=== PATIENT | female | born 1940 | race Caucasian/White ===

== ENCOUNTER 2021-11-06 19:06 | Observation (INO) ==
[2021-11-06] MEDS ORDERED: NS 1,000 ML IV 1,000 ML IV ONE (20:01)
[2021-11-06 20:21] LABS: BILIRUBIN,URINE NEGATIVE (NEGATIVE); BLOOD/HEMOGLOBIN,URINE 4+ (NEGATIVE); GLUCOSE, URINE NEGATIVE (NEGATIVE); KETONES,URINE NEGATIVE (NEGATIVE); LEUKOCYTE ESTERASE ,URINE 3+ (NEGATIVE); NITRITES,URINE NEGATIVE (NEGATIVE); PROTEIN,URINE 3+ (NEGATIVE); UROBILINOGEN,URINE NORMAL (NORMAL)
[2021-11-06 20:25] LABS: COLOR,URINE YELLOW (YELLOW)
[2021-11-06 20:26] LABS: APPEARANCE,URINE CLOUDY (CLEAR)
[2021-11-06 20:42] LABS: BACTERIA,URINE TRACE /HPF (NEGATIVE); RBC,URINE TNTC /HPF (0-3); SQUAMOUS EPITHELIAL CELL,UR MODERATE /HPF (NEGATIVE)
[2021-11-06 20:49] VITALS: BMI 23.0
[2021-11-06] MEDS ORDERED: MERREM VIAL ONE (21:43)
[2021-11-06] MEDS ORDERED: NS 50 ML IV 50 ML IV ONE (21:44)
[2021-11-06] MEDS: NS 1,000 ML IV 1,000 ML IV SCH (21:49)
[2021-11-06] MEDS ORDERED: MERREM VIAL IVP SCH (22:00)
[2021-11-06] MEDS ORDERED: MERREM PREMIX IV 500 MG 500 MG/50 ML BAG IV SCH (22:00)
[2021-11-06] MEDS: MERREM VIAL 500 MG in NS 50 ML IV 50 ML IV SCH (22:31)
[2021-11-07 04:33] LABS: BASOPHILS % (AUTO) 0.7 % (0.2-1.0); EOSINOPHILS # (AUTO) 0.3 x10^3/uL (0.0-0.2); HEMATOCRIT 25.5 % (36.0-47.0); HEMOGLOBIN 8.9 g/dL (12.0-16.0); LYMPHOCYTES % (AUTO) 14.9 % (21.0-51.0); MEAN CORPUSCULAR HEMOGLOBIN 27.2 pg (27.0-34.0); MEAN CORPUSCULAR HGB CONC 34.8 g/dL (33.0-35.0); MEAN CORPUSCULAR VOLUME 78.2 fL (80.0-100.0); MEAN PLATELET VOLUME 8.3 fL (7.4-11.0); MONOCYTES # (AUTO) 0.5 x10^3/uL (0.3-0.8); MONOCYTES % (AUTO) 7.8 % (0.0-13.0); NEUTROPHILS # (AUTO) 4.8 x10^3/uL (2.2-4.8); NEUTROPHILS % (AUTO) 72.6 % (42.0-75.0); RED BLOOD COUNT 3.26 X10^6/uL (3.5-5.4); RED CELL DISTRIBUTION WIDTH 14.6 % (11.6-16.5); WHITE BLOOD COUNT 6.6 X10^3/uL (3.6-10.0)
[2021-11-07 05:07] LABS: ALANINE AMINOTRANSFERASE 25 Units/L (12-78); ALBUMIN 2.8 g/dL (3.4-5.0); ALKALINE PHOSPHATASE 77 Units/L (46-116); ASPARTATE AMINO TRANSFERASE 24 Units/L (15-37); BLOOD UREA NITROGEN 47 mg/dL (7-18); CALCIUM 7.9 mg/dL (8.5-10.1); CARBON DIOXIDE 18.8 mmol/L (21-32); CHLORIDE 104 mmol/L (98-107); COR CA(FOR HYPOALB) 8.9 mg/dL (8.5-10.1); CREATININE 2.35 mg/dL (0.55-1.02); SODIUM 133 mmol/L (136-145); TOTAL PROTEIN 7.1 g/dL (6.4-8.2); eGFR NON BLACK RACES 21 (>60)
[2021-11-07] MEDS: NS 1,000 ML IV 1,000 ML IV SCH ×3 (05:40→21:31)
[2021-11-07] MEDS ORDERED: TYLENOL 325 MG TAB PO PRN (08:26)
[2021-11-07] MEDS ORDERED: [UNRECOGNIZED DRUG - OTHER] TOP SCH (09:00)
[2021-11-07] MEDS ORDERED: [UNRECOGNIZED DRUG - OTHER] OP SCH (09:00)
[2021-11-07] MEDS ORDERED: SYNTHROID 50 mcg TAB PO SCH (09:00)
[2021-11-07] MEDS: MERREM VIAL 500 MG in NS 50 ML IV 50 ML IV SCH ×2 (09:52→21:48)
[2021-11-07] MEDS: APRESOLINE TAB 25 MG PO SCH ×3 (11:01→21:34)
[2021-11-07] MEDS: CATAPRES TAB 0.2 MG PO SCH ×2 (11:02→21:33)
[2021-11-07] MEDS: ISOSORBIDE MONONITRATE ER 24-HR PO SCH (11:02)
[2021-11-07] MEDS: COLACE CAP 100 MG PO SCH (11:02)
[2021-11-07] MEDS: NORVASC TAB 10 MG PO SCH (11:03)
[2021-11-07] MEDS: KEPPRA TAB 500 MG PO SCH ×2 (11:03→21:34)
[2021-11-07] MEDS: PLAVIX PO SCH (11:03)
[2021-11-07] MEDS: PREDNISONE TAB 5 MG PO SCH (11:04)
[2021-11-07] MEDS: SINEMET (PLAIN) 25/100 MG PO SCH ×2 (11:05→21:35)
[2021-11-07] MEDS: PROTONIX TAB 40 MG PO SCH ×2 (11:05→21:35)
--- NOTE | 2021-11-07 12:25 | CT ---
HISTORYsevere mcmullen hypertension.STUDYBRAIN W/O CONCOMPARISONHead CT 08/09/2019TECHNIQUEMultiple CT axial images of the head were obtained without IV contrast. Coronal and sagittal images were reconstructed. Dose reduction techniques included Automated Exposure Control (AEC) and adjustment of mA and kV.FINDINGSAge-related findings include central and cortical atrophy with areas of low density in the periventricular white matter compatible with micro-ischemic changes. Coffey and white matter have normal differentiation. There is no mass, shift, or hemorrhage. Cerebellar tonsils are at an appropriate level.The chronic sinusitis which was present in left sphenoid sinus has resolved. No fluid in the sinuses or mucosal thickening to suggest sinusitis. There is no mastoid effusion.IMPRESSION1. No acute findingElectronically signed by: Rylan Gunderson (Nov 07, 2021 12:23:28)
[2021-11-07] MEDS: FLUOCINONIDE 0.05% TOP SCH ×3 (13:33→21:35)
--- NOTE | 2021-11-07 17:46 | DR.H&P ---
H&P - History & Physical for Day of: H&P Date: 11/06/21 - Chief Complaint Chief Complaint: DYSURIA, URINARY URGENCY, FEVER, HEADACHE - History of Present Illness History of Present Illness: IS A 80 YEAR OLD PATIENT OF OURS. SHE IS A RESIDENT OF [facility]. SHE WAS A DIRECT ADMISSION TO THE HOSPITAL OBSERVATION STATUS DUE TO PERSISTENT FEVER, DYSURIA, AND URINARY URGENCY. SHE HAS BEEN TAKING AUGMENTIN 875/125MG PO BID FOR ABOUT A WEEK FOR TREATMENT OF E.COLI UTI. SYMPTOMS HAVE PERSISTED DESPITE COMPLIANCE WITH MEDICATIONS. SHE ALSO COMPLAINTS OF A SEVERE RIGHT SIDED HEADACHE AND PRESSURE BEHIND THE RIGHT EYE. HEADACHE IS DESCRIBED DULL AND THROBBING. IT IS INTERMITTENT. CURRENT PAIN LEVEL 5/10. HER PMH INCLUDES: COPD, CAD, HYTN, HYPERLIPIDEMIA, GIANT CELL ARTERTITIS, CHRONIC RENAL DISEASE STAGE 3, GERD, GOUT, APPENDECTOMY, CHOLECYSTECTOMY, HYSTERECTOMY. ON ARRIVAL TO THE HOSPTIAL, HER VITALS WERE 97.8-81-20-99%-144/67. LABS WERE OBTAINED. WBC 6.6, RBC 3.26, HGB 8.9, HCT 25.5, SODIUM 133, POTASSIUM 4.5, CHLORIDE 104, CARBON DIOXIDE 18.8, BUN 47, CREATININE 2.35, GLUCOSE 100, CALCIUM 7.9, TOTAL BILI 0.20, AST 24, ALT 25, ALK PHOS 77, TOTAL PROTEIN 7.1, ALBUMIN 2.8. A URINALYSIS WAS OBTAINED. IT REVEALED: WBC 10- 20, RBC TNTC, LEUKOCYTES 3+, BACTERIA TRACE, BLOOD 4+, PROTEIN 3+. COVID-19, INFLUENZA, RSV NEGATIVE. A URINE CULTURE WAS SET UP. SHE WAS STARTED ON NORMAL SALINE AT 100 ML/HR, MEROPENEM 500MG IV Q12H, AND HER HOME MEDICATIONS WERE RESUMED. OTHERWISE, WE PLAN TO FOLLOW-UP WITH AM LABS AND CONTINUE TO MONITOR. TIME SPENT ON CLINICAL ASSESSMENT, REVIEWING LABS AND IMAGING, DECISION MAKING, AND DOCUMENTATION GREATER THAN 75 MINUTES. - Past Medical History Past Medical History: COPD, Coronary Artery Disease, Dyslipidemia, GERD, Gout, Renal Disease Additional Medical History: GIANT CELL ARTERITIS - Past Surgical History Surgical History: Appendectomy, Cholecystectomy, Hysterectomy - Family History Family Medical History: Coronary Artery Disease, Hypertension - Social History Alcohol Use: None Drug Use: None - Medications Home Medications: lisinopril Allergy (Verified 11/06/21 20:32) CONTINUE taking the following medications acetaminophen [Tylenol] 650 mg PO Q6H PRN 11/06/21 [History] amlodipine [Norvasc] 10 mg PO DAILY 11/06/21 [History] amoxicillin-pot clavulanate [Augmentin] 1 tab PO BID 11/06/21 [History] atorvastatin 20 mg PO QHS 11/06/21 [History] carbidopa-levodopa 1 tab PO BID 11/06/21 [History] carboxymethylcellulose sodium [Refresh Plus] 1 drp OPHTHALMIC (EYE) BID 11/06/21 [History] chlorthalidone 50 mg PO DAILY 11/06/21 [History] clonidine HCl 0.2 mg PO BID 11/06/21 [History] clopidogrel [Plavix] 75 mg PO DAILY 11/06/21 [History] colchicine 0.6 mg PO PRN PRN 11/06/21 [History] docusate sodium [Colace] 100 mg PO DAILY 11/06/21 [History] fluocinonide 1 applic TOPICAL BID-QID PRN 11/06/21 [History] hydralazine 50 mg PO TID 11/06/21 [History] isosorbide mononitrate 120 mg PO QAM 11/06/21 [History] levetiracetam [Keppra] 500 mg PO BID 11/06/21 [History] levothyroxine [Synthroid] 50 mcg PO DAILY 11/06/21 [History] loratadine [Claritin] 10 mg PO QHS 11/06/21 [History] nystatin-triamcinolone 1 applic TOPICAL BID 11/06/21 [History] pantoprazole [Protonix] 40 mg PO BID 11/06/21 [History] polyethylene glycol 3350 [Miralax] 17 g PO PRN PRN 11/06/21 [History] prednisone 5 mg PO DAILY 11/06/21 [History] triamcinolone acetonide 1 applic TOPICAL PRN PRN 11/06/21 [History] - Review of Systems Constitutional: Fever, Chills Eyes: No Symptoms Reported ENT: No Symptoms Reported Respiratory: No Symptoms Reported Cardiovascular: No Symptoms Reported Gastrointestinal: Nausea Genitourinary: See HPI, Dysuria, Frequency Musculoskeletal: No Symptoms Reported Skin: No Symptoms Reported Neurological: Weakness, Other (HEADACHE ) - Physical Exam Vital Signs: Temperature 99.3 F Pulse Rate [Right] 76 Respiratory Rate 18 Blood Pressure [Right Arm] 147/65 O2 Sat by Pulse Oximetry 97 Oriented: Normal Eyes: Normal Ear: Normal Nose: Normal Throat: Normal Respiratory: Clear Throughout Cardiovascular: Normal : Dysuria, Hematuria, Frequency Auscultation: Bowel Sounds: Normal Palpation: Normal Tenderness: Normal Skin: Normal Musculoskeletal: Normal Psychiatric: Normal Mood Description: Calm Affect: Normal Speech Pattern: Clear - Assessment/Plan (1) E. coli UTI Status: Acute Plan: ADMIT, NORMAL SALINE AT 100 ML/HR, MEROPENEM 500MG IV Q12H, AND HER HOME MEDICATIONS WERE RESUMED. (2) Failure of outpatient treatment Status: Acute (3) Headache Qualifiers: Headache type: unspecified Headache chronicity pattern: acute headache Intractability: not intractable Qualified Code(s): R51.9 - Headache, unspecified Status: Acute (4) COPD (chronic obstructive pulmonary disease) Qualifiers: COPD type: unspecified COPD Qualified Code(s): J44.9 - Chronic obstructive pulmonary disease, unspecified Status: Chronic Plan: CONTINUE HOME MEDS (5) HTN (hypertension) Qualifiers: Hypertension type: primary hypertension Qualified Code(s): I10 - Essential (primary) hypertension Status: Chronic Plan: CONTINUE HOME MEDS (6) Hyperlipidemia Qualifiers: Hyperlipidemia type: mixed hyperlipidemia Qualified Code(s): E78.2 - Mixed hyperlipidemia Status: Chronic Plan: CONTINUE HOME MEDS (7) Chronic renal disease Qualifiers: Chronic kidney disease stage: stage 3 (moderate) Chronic kidney disease stage 3 subtype: unspecified whether 3a or 3b Qualified Code(s): N18.30 - Chronic kidney disease, stage 3 unspecified Status: Chronic Plan: CONTINUE HOME MEDS (8) CAD (coronary artery disease) Qualifiers: Coronary Disease-Associated Artery/Lesion type: [place] artery [place] vs. transplanted heart: [place] heart Associated angina: unspecified whether angina present Qualified Code(s): I25.10 - Atherosclerotic heart disease of [place] coronary artery without angina pectoris Status: Chronic Plan: CONTINUE HOME MEDS - Allergies Allergies/Adverse Reactions: Allergies Allergy/AdvReac Type Severity Reaction Status Date / Time lisinopril Allergy Verified 11/06/21 20:32
[2021-11-07] MEDS: ARTIFICIAL TEARS DROPS OP SCH (21:32)
[2021-11-07] MEDS: LIPITOR TAB 20 MG PO SCH (21:34)
[2021-11-07] MEDS: CLARITIN PO SCH (21:34)
[2021-11-08] MEDS: NS 1,000 ML IV 1,000 ML IV SCH ×4 (04:07→20:38)
[2021-11-08 04:31] LABS: BASOPHILS # (AUTO) 0.1 X10^3/uL (0.0-0.1); BASOPHILS % (AUTO) 0.7 % (0.2-1.0); EOSINOPHILS # (AUTO) 0.2 x10^3/uL (0.0-0.2); HEMOGLOBIN 8.4 g/dL (12.0-16.0); LYMPHOCYTES # (AUTO) 1.5 X10^3/uL (1.3-2.9); LYMPHOCYTES % (AUTO) 20.3 % (21.0-51.0); MEAN CORPUSCULAR HEMOGLOBIN 27.5 pg (27.0-34.0); MEAN CORPUSCULAR HGB CONC 34.9 g/dL (33.0-35.0); MEAN CORPUSCULAR VOLUME 78.9 fL (80.0-100.0); MEAN PLATELET VOLUME 7.9 fL (7.4-11.0); MONOCYTES # (AUTO) 0.7 x10^3/uL (0.3-0.8); MONOCYTES % (AUTO) 10.2 % (0.0-13.0); NEUTROPHILS # (AUTO) 4.8 x10^3/uL (2.2-4.8); NEUTROPHILS % (AUTO) 65.8 % (42.0-75.0); RED BLOOD COUNT 3.04 X10^6/uL (3.5-5.4); RED CELL DISTRIBUTION WIDTH 14.8 % (11.6-16.5); WHITE BLOOD COUNT 7.3 X10^3/uL (3.6-10.0)
[2021-11-08 04:42] LABS: ALANINE AMINOTRANSFERASE 11 Units/L (12-78); ALBUMIN 2.6 g/dL (3.4-5.0); ALKALINE PHOSPHATASE 70 Units/L (46-116); ASPARTATE AMINO TRANSFERASE 22 Units/L (15-37); BLOOD UREA NITROGEN 35 mg/dL (7-18); CALCIUM 7.9 mg/dL (8.5-10.1); CARBON DIOXIDE 18.2 mmol/L (21-32); CHLORIDE 110 mmol/L (98-107); CREATININE 1.69 mg/dL (0.55-1.02); SODIUM 137 mmol/L (136-145); TOTAL PROTEIN 6.6 g/dL (6.4-8.2); eGFR NON BLACK RACES 31 (>60)
[2021-11-08] MEDS: SYNTHROID 50 mcg TAB PO SCH (05:24)
[2021-11-08] MEDS: APRESOLINE TAB 25 MG PO SCH ×3 (05:24→21:37)
--- NOTE | 2021-11-08 09:54 | PCM.PROG ---
Progress Note - Progress Note for Day of Date of Exam: 11/08/21 - Subjective Subjective: IS CURRENTLY OBSERVATION STATUS FOR TREATMENT OF A URINARY TRACT INFECTION, FAILED OUTPATIENT TREATMENT, ACUTE ON CHRONIC RENAL DISEASE, GENERALIZED WEAKNESS, AND HEADACHE. SHE HAS A PMH OF COPD, HTN, HYPERLIPIDEMIA, CHRONIC RENAL DISEASE, AND CAD. TODAY, SHE IS ALERT AND ORIENTED , LYING IN BED ON MORNING ROUNDS. SHE CONTINUES WITH COMPLAINTS OF GENERALIZED WEAKNESS THIS MORNING. SHE CONTINUES TO HAVE AN INTERMITTENT HEADACHE, BUT DOES REPORT IMPROVEMENT SINCE YESTERDAY. ON EXAMINATION, HEART IS REGULAR IN RATE AND RHYTHM. BILATERAL LUNGS ARE CLEAR TO AUSCULATATION. ABDOMEN IS ROUND, SOFT, AND NOTED WITH SUPRAPUBIC TENDERNESS. NORMAL BOWEL SOUNDS ARE NOTED IN ALL QUADRANTS . NO UPPER OR LOWER EXTREMITY EDEMA NOTED. HER VITALS THIS MORNING ARE: 98.7-72-22-99%-147/65. LABS WERE OBTAINED. WBC 7.3, RBC 3.04, HGB 8.4, HCT 24.0, PLT COUNT 164, SODIUM 137, POTASSIUM 4.9, CHLORIDE 110, CARBON DIOXIDE 18.2, BUN 35, CREATININE 1.69, GLUCOSE 98, CALCIUM 7.9, AST 22, ALT 11, ALK PHOS 70, TOTAL PROTEIN 6.6, ALBUMIN 2.6. URINE CULTURE IS PENDING. A BRAIN CT WAS OBTAINED YESTERDAY DUE TO COMPLAINTS OF PERSISTENT HEADACHE. IT REVEALED: Age-related findings include central and cortical atrophy with areas of low density in the periventricular white matter compatible with micro-ischemic changes. Coffey and white matter have normal differentiation. There is no mass, shift, or hemor rhage. Cerebellar tonsils are at an appropriate level. The chronic sinusitis which was present in left sphenoid sinus has resolved. No fluid in the sinuses or mucosal thickening to suggest sinusitis. There is no mastoid effusion. SHE IS CURRENTLY RECEIVING NORMAL SALINE AT 100 ML/HR, MEROPENEM 500MG IV Q12H, AND HER HOME MEDICATIONS WERE RESUMED. WE WILL CONTINUE WITH CURRENT PLAN OF CARE TODAY. OTHERWISE, WE PLAN TO FOLLOW-UP WITH AM LABS AND CONTINUE TO MONITOR. TIME SPENT ON CLINICAL ASSESSMENT, REVIEWING LABS AND IMAGING, DECISION MAKING, AND DOCUMENTATION GREATER THAN 45 MINUTES. - Past Medical Family Social History Past Med/Fam/Surg Hx: No changes since H&P Allergies: Allergies lisinopril Allergy (Verified 11/06/21 20:32) - Review of Systems ROS: No change since H&P - Vital Signs and I&O's Vital Signs: Temperature 98.7 F Pulse Rate [Right] 72 Respiratory Rate 22 Blood Pressure [Right Arm] 147/65 O2 Sat by Pulse Oximetry 99 Intake and Output: Intake & Output 11/05/21 11/06/21 11/07/21 11/08/21 11:59 11:59 11:59 11:59 Intake Total 2457 / 2457 3133 / 3133 Output Total 880 / 880 1580 / 1580 Balance 1577 / 1577 1553 / 1553 - Physical Exam Oriented: Normal Eyes: Normal Ear: Normal Nose: Normal Throat: Normal Cardiovascular: Normal : Dysuria, Hematuria, Frequency Auscultation: Bowel Sounds: Normal Palpation: Normal Tenderness: Normal Skin: Normal Musculoskeletal: Normal Psychiatric: Normal Mood Description: Calm Affect: Normal Speech Pattern: Clear, Appropriate - Laboratory and Diagnostics Result Diagrams: 11/08/21 03:50 11/08/21 03:50 Labs: 11/06/21 19:55 Urine,Clean Catch Urine Culture - Final Laboratory WBC 7.3 X10^3/uL (3.6-10.0) 11/08/21 03:50 RBC 3.04 X10^6/uL (3.5-5.4) L 11/08/21 03:50 Hgb 8.4 g/dL (12.0-16.0) L 11/08/21 03:50 Hct 24.0 % (36.0-47.0) L 11/08/21 03:50 MCV 78.9 fL (80.0-100.0) L 11/08/21 03:50 MCH 27.5 pg (27.0-34.0) 11/08/21 03:50 MCHC 34.9 g/dL (33.0-35.0) 11/08/21 03:50 RDW 14.8 % (11.6-16.5) 11/08/21 03:50 Plt Count 164 X10^3/uL (150.0-450.0) 11/08/21 03:50 MPV 7.9 fL (7.4-11.0) 11/08/21 03:50 Neut % (Auto) 65.8 % (42.0-75.0) 11/08/21 03:50 Lymph % (Auto) 20.3 % (21.0-51.0) L 11/08/21 03:50 [place] % (Auto) 10.2 % (0.0-13.0) 11/08/21 03:50 Eos % (Auto) 3.0 % (0.9-2.9) H 11/08/21 03:50 Baso % (Auto) 0.7 % (0.2-1.0) 11/08/21 03:50 Neut # (Auto) 4.8 x10^3/uL (2.2-4.8) 11/08/21 03:50 Lymph # (Auto) 1.5 X10^3/uL (1.3-2.9) 11/08/21 03:50 [place] # (Auto) 0.7 x10^3/uL (0.3-0.8) 11/08/21 03:50 Eos # (Auto) 0.2 x10^3/uL (0.0-0.2) 11/08/21 03:50 Baso # (Auto) 0.1 X10^3/uL (0.0-0.1) 11/08/21 03:50 Absolute Nucleated RBC 0.0 /100WBC 11/08/21 03:50 Sodium 137 mmol/L (136-145) 11/08/21 03:50 Corrected Sodium TNP 11/08/21 03:50 Potassium 4.9 mmol/L (3.5-5.1) 11/08/21 03:50 Chloride 110 mmol/L (98-107) H 11/08/21 03:50 Carbon Dioxide 18.2 mmol/L (21-32) L 11/08/21 03:50 BUN 35 mg/dL (7-18) H 11/08/21 03:50 Creatinine 1.69 mg/dL (0.55-1.02) H 11/08/21 03:50 Est GFR (MDRD) Af Amer 37 (>60) L 11/08/21 03:50 Est GFR (MDRD) Non-Af 31 (>60) L 11/08/21 03:50 Glucose 98 mg/dL (65-99) 11/08/21 03:50 Calcium 7.9 mg/dL (8.5-10.1) L 11/08/21 03:50 Corrected Calcium 9.0 mg/dL (8.5-10.1) 11/08/21 03:50 Total Bilirubin 0.20 mg/dL (0.2-1.0) 11/08/21 03:50 AST 22 Units/L (15-37) 11/08/21 03:50 ALT 11 Units/L (12-78) L 11/08/21 03:50 Alkaline Phosphatase 70 Units/L (46-116) 11/08/21 03:50 Total Protein 6.6 g/dL (6.4-8.2) 11/08/21 03:50 Albumin 2.6 g/dL (3.4-5.0) L 11/08/21 03:50 Globulin 4.0 g/dL (2.5-4.5) 11/08/21 03:50 Albumin/Globulin Ratio 0.7 Ratio (1.1-2.1) L 11/08/21 03:50 Specimen Type Catherized urine 11/06/21 19:55 Urine Color Yellow (YELLOW) 11/06/21 19:55 Urine Appearance Cloudy (CLEAR) 11/06/21 19:55 Urine pH 6.0 (5.0 - 8.0) 11/06/21 19:55 Ur Specific [place] 1.015 (1.000-1.030) 11/06/21 19:55 Urine Protein 3+ (NEGATIVE) 11/06/21 19:55 Urine Glucose (UA) Negative (NEGATIVE) 11/06/21 19:55 Urine Ketones Negative (NEGATIVE) 11/06/21 19:55 Urine Blood 4+ (NEGATIVE) 11/06/21 19:55 Urine Nitrite Negative (NEGATIVE) 11/06/21 19:55 Urine Bilirubin Negative (NEGATIVE) 11/06/21 19:55 Urine Urobilinogen Normal (NORMAL) 11/06/21 19:55 Ur Leukocyte Esterase 3+ (NEGATIVE) 11/06/21 19:55 Urine RBC Tntc /HPF (0-3) A 11/06/21 19:55 Urine WBC 10-20 /HPF (0-5) A 11/06/21 19:55 Ur Squamous Epith Cells Moderate /HPF (NEGATIVE) 11/06/21 19:55 Amorphous Sediment 1+ /HPF (NEGATIVE) 11/06/21 19:55 Urine Bacteria Trace /HPF (NEGATIVE) 11/06/21 19:55 Ur Culture Indicated? Yes/culture set up 11/06/21 19:55 SARS-CoV-2 (PCR) Negative (NEGATIVE) 11/06/21 21:07 Influenza Type A (PCR) Negative (NEGATIVE) 11/06/21 21:07 Influenza Type B (PCR) Negative (NEGATIVE) 11/06/21 21:07 RSV (PCR) Negative (NEGATIVE) 11/06/21 21:07 - Plan (1) E. coli UTI Status: Acute Plan: NORMAL SALINE AT 100 ML/HR, MEROPENEM 500MG IV Q12H, AND HER HOME MEDICATIONS WERE RESUMED. (2) Failure of outpatient treatment Status: Acute (3) Headache Status: Acute Qualifiers: Headache type: unspecified Headache chronicity pattern: acute headache Intractability: not intractable Qualified Code(s): R51.9 - Headache, unspecified (4) COPD (chronic obstructive pulmonary disease) Status: Chronic Qualifiers: COPD type: unspecified COPD Qualified Code(s): J44.9 - Chronic obstructive pulmonary disease, unspecified Plan: CONTINUE HOME MEDS (5) HTN (hypertension) Status: Chronic Qualifiers: Hypertension type: primary hypertension Qualified Code(s): I10 - Essential (primary) hypertension Plan: CONTINUE HOME MEDS (6) Hyperlipidemia Status: Chronic Qualifiers: Hyperlipidemia type: mixed hyperlipidemia Qualified Code(s): E78.2 - Mixed hyperlipidemia Plan: CONTINUE HOME MEDS (7) Chronic renal disease Status: Chronic Qualifiers: Chronic kidney disease stage: stage 3 (moderate) Chronic kidney disease stage 3 subtype: unspecified whether 3a or 3b Qualified Code(s): N18.30 - Chronic kidney disease, stage 3 unspecified Plan: CONTINUE HOME MEDS (8) CAD (coronary artery disease) Status: Chronic Qualifiers: Coronary Disease-Associated Artery/Lesion type: [place] artery [place] vs. transplanted heart: [place] heart Associated angina: unspecified whether angina present Qualified Code(s): I25.10 - Atherosclerotic heart disease of [place] coronary artery without angina pectoris Plan: CONTINUE HOME MEDS
[2021-11-08] MEDS: ARTIFICIAL TEARS DROPS OP SCH ×2 (10:18→21:38)
[2021-11-08] MEDS: PREDNISONE TAB 5 MG PO SCH (10:19)
[2021-11-08] MEDS: KEPPRA TAB 500 MG PO SCH ×2 (10:19→21:38)
[2021-11-08] MEDS: ISOSORBIDE MONONITRATE ER 24-HR PO SCH (10:19)
[2021-11-08] MEDS: NORVASC TAB 10 MG PO SCH (10:19)
[2021-11-08] MEDS: CATAPRES TAB 0.2 MG PO SCH ×2 (10:19→21:38)
[2021-11-08] MEDS: COLACE CAP 100 MG PO SCH (10:21)
[2021-11-08] MEDS: PLAVIX PO SCH (10:21)
[2021-11-08] MEDS: PROTONIX TAB 40 MG PO SCH ×2 (10:21→21:37)
[2021-11-08] MEDS: SINEMET (PLAIN) 25/100 MG PO SCH ×2 (10:22→21:38)
[2021-11-08] MEDS: FLUOCINONIDE 0.05% TOP SCH ×4 (10:22→21:37)
[2021-11-08] MEDS: MERREM VIAL 500 MG in NS 50 ML IV 50 ML IV SCH ×2 (10:43→21:39)
[2021-11-08] MEDS: MIRALAX POWDER (1 DOSE 17 G) PO PRN (10:44)
[2021-11-08] MEDS: LIPITOR TAB 20 MG PO SCH (21:38)
[2021-11-08] MEDS: CLARITIN PO SCH (21:39)
[2021-11-09] MEDS: NS 1,000 ML IV 1,000 ML IV SCH ×5 (04:53→20:54)
[2021-11-09 05:14] LABS: BASOPHILS # (AUTO) 0.1 X10^3/uL (0.0-0.1); BASOPHILS % (AUTO) 0.9 % (0.2-1.0); EOSINOPHILS # (AUTO) 0.2 x10^3/uL (0.0-0.2); HEMATOCRIT 24.1 % (36.0-47.0); HEMOGLOBIN 8.3 g/dL (12.0-16.0); LYMPHOCYTES # (AUTO) 1.7 X10^3/uL (1.3-2.9); LYMPHOCYTES % (AUTO) 25.2 % (21.0-51.0); MEAN CORPUSCULAR HEMOGLOBIN 27.4 pg (27.0-34.0); MEAN CORPUSCULAR HGB CONC 34.7 g/dL (33.0-35.0); MEAN CORPUSCULAR VOLUME 79.1 fL (80.0-100.0); MONOCYTES # (AUTO) 0.6 x10^3/uL (0.3-0.8); MONOCYTES % (AUTO) 9.4 % (0.0-13.0); NEUTROPHILS # (AUTO) 4.3 x10^3/uL (2.2-4.8); NEUTROPHILS % (AUTO) 61.5 % (42.0-75.0); RED BLOOD COUNT 3.05 X10^6/uL (3.5-5.4); RED CELL DISTRIBUTION WIDTH 14.7 % (11.6-16.5); WHITE BLOOD COUNT 6.9 X10^3/uL (3.6-10.0)
[2021-11-09 05:33] LABS: ALANINE AMINOTRANSFERASE 10 Units/L (12-78); ALBUMIN 2.5 g/dL (3.4-5.0); ALKALINE PHOSPHATASE 68 Units/L (46-116); ASPARTATE AMINO TRANSFERASE 20 Units/L (15-37); BLOOD UREA NITROGEN 24 mg/dL (7-18); CALCIUM 8.1 mg/dL (8.5-10.1); CARBON DIOXIDE 18.4 mmol/L (21-32); CHLORIDE 112 mmol/L (98-107); COR CA(FOR HYPOALB) 9.3 mg/dL (8.5-10.1); CREATININE 1.34 mg/dL (0.55-1.02); SODIUM 139 mmol/L (136-145); TOTAL PROTEIN 6.5 g/dL (6.4-8.2); eGFR NON BLACK RACES 40 (>60)
[2021-11-09] MEDS: SYNTHROID 50 mcg TAB PO SCH (06:01)
[2021-11-09] MEDS: APRESOLINE TAB 25 MG PO SCH ×3 (06:01→21:02)
[2021-11-09] MEDS: ARTIFICIAL TEARS DROPS OP SCH ×2 (09:07→20:54)
[2021-11-09] MEDS: CATAPRES TAB 0.2 MG PO SCH ×2 (09:08→20:58)
[2021-11-09] MEDS: COLACE CAP 100 MG PO SCH (09:09)
[2021-11-09] MEDS: ISOSORBIDE MONONITRATE ER 24-HR PO SCH (09:10)
[2021-11-09] MEDS: KEPPRA TAB 500 MG PO SCH ×2 (09:10→20:57)
[2021-11-09] MEDS: FLUOCINONIDE 0.05% TOP SCH ×4 (09:10→20:54)
[2021-11-09] MEDS: NORVASC TAB 10 MG PO SCH (09:11)
[2021-11-09] MEDS: PLAVIX PO SCH (09:11)
[2021-11-09] MEDS: PROTONIX TAB 40 MG PO SCH ×2 (09:12→21:02)
[2021-11-09] MEDS: PREDNISONE TAB 5 MG PO SCH (09:12)
[2021-11-09] MEDS: SINEMET (PLAIN) 25/100 MG PO SCH ×2 (09:13→20:58)
[2021-11-09] MEDS: MERREM VIAL 500 MG in NS 50 ML IV 50 ML IV SCH (09:13)
[2021-11-09] MEDS: MIRALAX POWDER (1 DOSE 17 G) PO PRN (09:46)
[2021-11-09] MEDS ORDERED: MILK OF MAGNESIA PO PRN (10:00)
[2021-11-09] MEDS ORDERED: ATIVAN TAB 0.5 MG PO SCH (10:02)
[2021-11-09] MEDS: LEVSIN/MAALOX/LIDOC VISC PO SCH ×4 (10:53→20:53)
[2021-11-09] MEDS ORDERED: LASIX IVP SCH (11:00)
--- NOTE | 2021-11-09 12:16 | RAD ---
HISTORYABDOMINAL PAINSTUDYKUB x-ray one viewCOMPARISONX-ray 01/19/2021FINDINGSModerate colonic air without dilation. Mild small bowel air is seen without dilation. No constipation is seen. Probable [place] catheter is present. Prior cholecystectomy. Vascular calcifications are seen in the pelvis.IMPRESSIONThere is mild increased colonic air without dilation. Appearance is nonspecific and could be from swallowed air or enteritis.Electronically signed by: Charlie Sánchez (Nov 09, 2021 12:15:41)
--- NOTE | 2021-11-09 16:51 | PCM.PROG ---
Progress Note - Progress Note for Day of Date of Exam: 11/09/21 - Subjective Subjective: IS CURRENTLY OBSERVATION STATUS FOR TREATMENT OF A URINARY TRACT INFECTION, FAILED OUTPATIENT TREATMENT, ACUTE ON CHRONIC RENAL DISEASE, GENERALIZED WEAKNESS, AND HEADACHE. SHE HAS A PMH OF COPD, HTN, HYPERLIPIDEMIA, CHRONIC RENAL DISEASE, AND CAD. TODAY, SHE IS ALERT AND ORIENTED , LYING IN BED ON MORNING ROUNDS. SHE CONTINUES WITH COMPLAINTS OF GENERALIZED WEAKNESS THIS MORNING. SHE ALSO REPORTS DIFFUSE ABDOMINAL PAIN. ON EXAMINATION, HEART IS REGULAR IN RATE AND RHYTHM. BILATERAL LUNGS ARE CLEAR TO AUSCULATATION. ABDOMEN IS ROUND, SOFT, AND NOTED WITH DIFFUSE TENDERNESS. NORMAL BOWEL SOUNDS ARE NOTED IN ALL QUADRANTS. NO UPPER OR LOWER EXTREMITY EDEMA NOTED. HER VITALS THIS MORNING ARE: 98.5-64-20-98%-127/58. LABS WERE OBTAINED. WBC 6.9, RBC 3.05, HGB 83, HCT 24.1, SODIUM 136, POTASSIUM 3.2, CHLORIDE 101, BUN 17, CREATININE 0.73, GLUCOSE 168, CALCIUM 9.1, TOTAL BILI 0.10, AST 20, ALT 26, ALK PHOS 63, TOTAL PROTEIN 6.3, ALBUMIN 3.0. URINE CULTURE IS PENDING. SHE IS CURRENTLY RECEIVING NORMAL SALINE AT 100 ML/HR, MEROPENEM 500MG IV Q12H, AND HER HOME MEDICATIONS WERE RESUMED. WE SUNG OBTAIN A KUB AND START COLACE 100MG PO BID, MILK OF MAGNESIA 15ML PO QID PRN, MIRALAX 17G PO DAILY, AND GI COCKTAIL 15ML QID. OTHERWISE, WE WILL CONTINUE WITH CURRENT PLAN OF CARE TODAY. WE PLAN TO FOLLOW-UP WITH AM LABS AND CONTINUE TO MONITOR. TIME SPENT ON CLINICAL ASSESSMENT, REVIEWING LABS AND IMAGING, DECISION MAKING, AND DOCUMENTATION GREATER THAN 45 MINUTES. - Past Medical Family Social History Past Med/Fam/Surg Hx: No changes since H&P Allergies: Allergies lisinopril Allergy (Verified 11/06/21 20:32) - Review of Systems ROS: No change since H&P - Vital Signs and I&O's Vital Signs: Temperature 98.5 F Pulse Rate [Right] 64 Respiratory Rate 18 Blood Pressure [Right Arm] 127/58 O2 Sat by Pulse Oximetry 98 Intake and Output: Intake & Output 11/07/21 11/08/21 11/09/21 11/10/21 11:59 11:59 11:59 11:59 Intake Total 2457 / 2457 3133 / 3133 3630 / 3630 1380 / 1380 Output Total 880 / 880 1580 / 1580 3100 / 3100 900 / 900 Balance 1577 / 1577 1553 / 1553 530 / 530 480 / 480 - Physical Exam Oriented: Normal Eyes: Normal Ear: Normal Nose: Normal Throat: Normal Respiratory: Diminished Cardiovascular: Normal : Dysuria, Hematuria, Frequency Auscultation: Bowel Sounds: Normal Palpation: Normal Tenderness: Normal Skin: Normal Musculoskeletal: Normal Psychiatric: Normal Mood Description: Calm Affect: Normal Speech Pattern: Clear, Appropriate - Laboratory and Diagnostics Result Diagrams: 11/09/21 04:24 11/09/21 04:24 Labs: 11/06/21 19:55 Urine,Clean Catch Urine Culture - Final Laboratory WBC 6.9 X10^3/uL (3.6-10.0) 11/09/21 04:24 RBC 3.05 X10^6/uL (3.5-5.4) L 11/09/21 04:24 Hgb 8.3 g/dL (12.0-16.0) L 11/09/21 04:24 Hct 24.1 % (36.0-47.0) L 11/09/21 04:24 MCV 79.1 fL (80.0-100.0) L 11/09/21 04:24 MCH 27.4 pg (27.0-34.0) 11/09/21 04:24 MCHC 34.7 g/dL (33.0-35.0) 11/09/21 04:24 RDW 14.7 % (11.6-16.5) 11/09/21 04:24 Plt Count 184 X10^3/uL (150.0-450.0) 11/09/21 04:24 MPV 8.0 fL (7.4-11.0) 11/09/21 04:24 Neut % (Auto) 61.5 % (42.0-75.0) 11/09/21 04:24 Lymph % (Auto) 25.2 % (21.0-51.0) 11/09/21 04:24 [place] % (Auto) 9.4 % (0.0-13.0) 11/09/21 04:24 Eos % (Auto) 3.0 % (0.9-2.9) H 11/09/21 04:24 Baso % (Auto) 0.9 % (0.2-1.0) 11/09/21 04:24 Neut # (Auto) 4.3 x10^3/uL (2.2-4.8) 11/09/21 04:24 Lymph # (Auto) 1.7 X10^3/uL (1.3-2.9) 11/09/21 04:24 [place] # (Auto) 0.6 x10^3/uL (0.3-0.8) 11/09/21 04:24 Eos # (Auto) 0.2 x10^3/uL (0.0-0.2) 11/09/21 04:24 Baso # (Auto) 0.1 X10^3/uL (0.0-0.1) 11/09/21 04:24 Absolute Nucleated RBC 0.0 /100WBC 11/09/21 04:24 Sodium 139 mmol/L (136-145) 11/09/21 04:24 Corrected Sodium TNP 11/09/21 04:24 Potassium 4.8 mmol/L (3.5-5.1) 11/09/21 04:24 Chloride 112 mmol/L (98-107) H 11/09/21 04:24 Carbon Dioxide 18.4 mmol/L (21-32) L 11/09/21 04:24 BUN 24 mg/dL (7-18) H 11/09/21 04:24 Creatinine 1.34 mg/dL (0.55-1.02) H 11/09/21 04:24 Est GFR (MDRD) Af Amer 49 (>60) L 11/09/21 04:24 Est GFR (MDRD) Non-Af 40 (>60) L 11/09/21 04:24 Glucose 87 mg/dL (65-99) 11/09/21 04:24 Calcium 8.1 mg/dL (8.5-10.1) L 11/09/21 04:24 Corrected Calcium 9.3 mg/dL (8.5-10.1) 11/09/21 04:24 Total Bilirubin 0.20 mg/dL (0.2-1.0) 11/09/21 04:24 AST 20 Units/L (15-37) 11/09/21 04:24 ALT 10 Units/L (12-78) L 11/09/21 04:24 Alkaline Phosphatase 68 Units/L (46-116) 11/09/21 04:24 Total Protein 6.5 g/dL (6.4-8.2) 11/09/21 04:24 Albumin 2.5 g/dL (3.4-5.0) L 11/09/21 04:24 Globulin 4.0 g/dL (2.5-4.5) 11/09/21 04:24 Albumin/Globulin Ratio 0.6 Ratio (1.1-2.1) L 11/09/21 04:24 Specimen Type Catherized urine 11/06/21 19:55 Urine Color Yellow (YELLOW) 11/06/21 19:55 Urine Appearance Cloudy (CLEAR) 11/06/21 19:55 Urine pH 6.0 (5.0 - 8.0) 11/06/21 19:55 Ur Specific [place] 1.015 (1.000-1.030) 11/06/21 19:55 Urine Protein 3+ (NEGATIVE) 11/06/21 19:55 Urine Glucose (UA) Negative (NEGATIVE) 11/06/21 19:55 Urine Ketones Negative (NEGATIVE) 11/06/21 19:55 Urine Blood 4+ (NEGATIVE) 11/06/21 19:55 Urine Nitrite Negative (NEGATIVE) 11/06/21 19:55 Urine Bilirubin Negative (NEGATIVE) 11/06/21 19:55 Urine Urobilinogen Normal (NORMAL) 11/06/21 19:55 Ur Leukocyte Esterase 3+ (NEGATIVE) 11/06/21 19:55 Urine RBC Tntc /HPF (0-3) A 11/06/21 19:55 Urine WBC 10-20 /HPF (0-5) A 11/06/21 19:55 Ur Squamous Epith Cells Moderate /HPF (NEGATIVE) 11/06/21 19:55 Amorphous Sediment 1+ /HPF (NEGATIVE) 11/06/21 19:55 Urine Bacteria Trace /HPF (NEGATIVE) 11/06/21 19:55 Ur Culture Indicated? Yes/culture set up 11/06/21 19:55 SARS-CoV-2 (PCR) Negative (NEGATIVE) 11/06/21 21:07 Influenza Type A (PCR) Negative (NEGATIVE) 11/06/21 21:07 Influenza Type B (PCR) Negative (NEGATIVE) 11/06/21 21:07 RSV (PCR) Negative (NEGATIVE) 11/06/21 21:07 - Plan (1) E. coli UTI Status: Acute Plan: NORMAL SALINE AT 100 ML/HR, MEROPENEM 500MG IV Q12H, AND HER HOME MEDICATIONS WERE RESUMED. (2) Failure of outpatient treatment Status: Acute (3) Abdominal pain Status: Acute Qualifiers: Abdominal location: generalized Qualified Code(s): R10.84 - Generalized abdominal pain (4) Headache Status: Acute Qualifiers: Headache type: unspecified Headache chronicity pattern: acute headache Intractability: not intractable Qualified Code(s): R51.9 - Headache, unspecified (5) COPD (chronic obstructive pulmonary disease) Status: Chronic Qualifiers: COPD type: unspecified COPD Qualified Code(s): J44.9 - Chronic obstructive pulmonary disease, unspecified Plan: CONTINUE HOME MEDS (6) HTN (hypertension) Status: Chronic Qualifiers: Hypertension type: primary hypertension Qualified Code(s): I10 - Essential (primary) hypertension Plan: CONTINUE HOME MEDS (7) Hyperlipidemia Status: Chronic Qualifiers: Hyperlipidemia type: mixed hyperlipidemia Qualified Code(s): E78.2 - Mixed hyperlipidemia Plan: CONTINUE HOME MEDS (8) Chronic renal disease Status: Chronic Qualifiers: Chronic kidney disease stage: stage 3 (moderate) Chronic kidney disease stage 3 subtype: unspecified whether 3a or 3b Qualified Code(s): N18.30 - Chronic kidney disease, stage 3 unspecified Plan: CONTINUE HOME MEDS (9) CAD (coronary artery disease) Status: Chronic Qualifiers: Coronary Disease-Associated Artery/Lesion type: [place] artery [place] vs. transplanted heart: [place] heart Associated angina: unspecified whether angina present Qualified Code(s): I25.10 - Atherosclerotic heart disease of [place] coronary artery without angina pectoris Plan: CONTINUE HOME MEDS
[2021-11-09] MEDS: CLARITIN PO SCH (20:57)
[2021-11-09] MEDS: LIPITOR TAB 20 MG PO SCH (20:58)
[2021-11-09] MEDS: MERREM VIAL 1 G in NS 100 ML IV 100 ML IV SCH (21:23)
[2021-11-10] MEDS: NS 1,000 ML IV 1,000 ML IV SCH ×5 (05:21→21:36)
[2021-11-10] MEDS: SYNTHROID 50 mcg TAB PO SCH (05:59)
[2021-11-10] MEDS: APRESOLINE TAB 25 MG PO SCH ×3 (05:59→21:45)
[2021-11-10 06:05] LABS: ALANINE AMINOTRANSFERASE 15 Units/L (12-78); ALBUMIN 2.6 g/dL (3.4-5.0); ALKALINE PHOSPHATASE 68 Units/L (46-116); ASPARTATE AMINO TRANSFERASE 17 Units/L (15-37); BLOOD UREA NITROGEN 20 mg/dL (7-18); CALCIUM 8.1 mg/dL (8.5-10.1); CARBON DIOXIDE 18.9 mmol/L (21-32); CHLORIDE 112 mmol/L (98-107); COR CA(FOR HYPOALB) 9.2 mg/dL (8.5-10.1); CREATININE 1.22 mg/dL (0.55-1.02); SODIUM 140 mmol/L (136-145); TOTAL PROTEIN 6.6 g/dL (6.4-8.2); eGFR NON BLACK RACES 45 (>60)
[2021-11-10 06:07] LABS: BASOPHILS # (AUTO) 0.1 X10^3/uL (0.0-0.1); BASOPHILS % (AUTO) 1.3 % (0.2-1.0); EOSINOPHILS # (AUTO) 0.2 x10^3/uL (0.0-0.2); EOSINOPHILS % (AUTO) 2.2 % (0.9-2.9); HEMOGLOBIN 8.9 g/dL (12.0-16.0); LYMPHOCYTES % (AUTO) 29.8 % (21.0-51.0); MEAN CORPUSCULAR HGB CONC 35.4 g/dL (33.0-35.0); MEAN CORPUSCULAR VOLUME 79.3 fL (80.0-100.0); MEAN PLATELET VOLUME 7.5 fL (7.4-11.0); MONOCYTES # (AUTO) 0.8 x10^3/uL (0.3-0.8); NEUTROPHILS # (AUTO) 3.8 x10^3/uL (2.2-4.8); NEUTROPHILS % (AUTO) 55.7 % (42.0-75.0); RED BLOOD COUNT 3.16 X10^6/uL (3.5-5.4); RED CELL DISTRIBUTION WIDTH 14.4 % (11.6-16.5); WHITE BLOOD COUNT 6.9 X10^3/uL (3.6-10.0)
[2021-11-10 07:02] LABS: BAND NEUTROPHILS % 5 % (0-10); PLATELET MORPHOLOGY COMMENT NORMAL (NORMAL)
[2021-11-10 07:03] LABS: BURR CELLS SLIGHT; MICROCYTOSIS SLIGHT; SCHISTOCYTES 1+
[2021-11-10] MEDS: ISOSORBIDE MONONITRATE ER 24-HR PO SCH (09:04)
[2021-11-10] MEDS: CATAPRES TAB 0.2 MG PO SCH ×2 (09:05→21:45)
[2021-11-10] MEDS: COLACE CAP 100 MG PO SCH (09:05)
[2021-11-10] MEDS: KEPPRA TAB 500 MG PO SCH ×2 (09:06→21:44)
[2021-11-10] MEDS: LEVSIN/MAALOX/LIDOC VISC PO SCH ×4 (09:06→21:42)
[2021-11-10] MEDS: NORVASC TAB 10 MG PO SCH (09:07)
[2021-11-10] MEDS: PLAVIX PO SCH (09:07)
[2021-11-10] MEDS: PROTONIX TAB 40 MG PO SCH ×2 (09:08→21:44)
[2021-11-10] MEDS: PREDNISONE TAB 5 MG PO SCH (09:08)
[2021-11-10] MEDS: ARTIFICIAL TEARS DROPS OP SCH ×2 (09:09→21:43)
[2021-11-10] MEDS: FLUOCINONIDE 0.05% TOP SCH ×4 (09:09→21:44)
[2021-11-10] MEDS: SINEMET (PLAIN) 25/100 MG PO SCH ×2 (09:09→21:44)
[2021-11-10] MEDS: MERREM VIAL 1 G in NS 100 ML IV 100 ML IV SCH ×2 (09:09→21:42)
--- NOTE | 2021-11-10 11:34 | PCM.PROG ---
Progress Note Progress Note for Day of Date of Exam: 11/10/21 Subjective Subjective: PT IS A 80 YEAR OLD FEMALE ADMITTED FOR TREATMENT OF A URINARY TRACT INFECTION, FAILED OUTPATIENT TREATMENT, ACUTE ON CHRONIC RENAL DISEASE, GENERALIZED WEAKNESS, AND HEADACHE. SHE HAS A PMH OF COPD, HTN, HYPERLIPIDEMIA, CHRONIC RENAL DISEASE, AND CAD. THIS MORNING SHE IS RESTING COMFORTABLY IN BED. NO ACUTE EVENTS OVERNIGHT. SHE DID HAVE THREE BOWEL MOVEMENTS YESTERDAY THAT SHE REPORTS MADE HER FEEL BETTER. LABS WERE OBTAINED: WBC 6.9, HGB 8.9, PLT 199, NA 140, K 4.8, CREATININE 1.22, GLUCOSE 86, URINE CULTURE IS PENDING. SHE IS CURRENTLY RECEIVING NORMAL SALINE AT 100 ML/HR, MEROPENEM 500MG IV Q12H, AND HER HOME MEDICATIONS WERE RESUMED. WE SUNG OBTAIN A KUB AND START COLACE 100MG PO BID, MILK OF MAGNESIA 15ML PO QID PRN, MIRALAX 17G PO DAILY, AND GI COCKTAIL 15ML QID. OTHERWISE, WE WILL CONTINUE WITH CURRENT PLAN OF CARE TODAY. CONTINUE TO CLOESLY MONITOR AND FOLLOW UP LABS IN THE MORNING. Past Medical Family Social History Past Med/Fam/Surg Hx: No changes since H&P Allergies: Allergies lisinopril Allergy (Verified 11/06/21 20:32) Review of Systems ROS: No change since H&P Vital Signs and I&O's Vital Signs: Temperature 98.6 F Pulse Rate [Right] 70 Respiratory Rate 18 Blood Pressure [Right Arm] 158/72 O2 Sat by Pulse Oximetry 98 Intake and Output: Intake & Output 11/07/21 11/08/21 11/09/21 11/10/21 23:59 23:59 23:59 23:59 Intake Total 3317 / 3317 3155 / 3155 3700 / 3700 1100 / 1100 Output Total 1300 / 1300 2180 / 2180 2700 / 2700 1100 / 1100 Balance 2016 975 / 975 1000 / 1000 0 / 0 Physical Exam Oriented: Normal Eyes: Normal Ear: Normal Nose: Normal Throat: Normal Respiratory: Diminished Cardiovascular: Normal : Dysuria, Hematuria and Frequency Auscultation: Bowel Sounds: Normal Tenderness: Normal Skin: Normal Musculoskeletal: Normal Psychiatric: Normal Mood Description: Calm Affect: Normal Speech Pattern: Clear and Appropriate Laboratory and Diagnostics Result Diagrams: 11/10/21 05:30 11/10/21 05:30 Labs: 11/09/21 12:03 Urine,Clean Catch Urine Culture - Preliminary 11/06/21 19:55 Urine,Clean Catch Urine Culture - Final Laboratory WBC 6.9 X10^3/uL (3.6-10.0) 11/10/21 05:30 RBC 3.16 X10^6/uL (3.5-5.4) L 11/10/21 05:30 Hgb 8.9 g/dL (12.0-16.0) L 11/10/21 05:30 Hct 25.0 % (36.0-47.0) L 11/10/21 05:30 MCV 79.3 fL (80.0-100.0) L 11/10/21 05:30 MCH 28.0 pg (27.0-34.0) 11/10/21 05:30 MCHC 35.4 g/dL (33.0-35.0) H 11/10/21 05:30 RDW 14.4 % (11.6-16.5) 11/10/21 05:30 Plt Count 199 X10^3/uL (150.0-450.0) 11/10/21 05:30 Plt Count Comment Adequate (ADEQUATE) 11/10/21 05:30 MPV 7.5 fL (7.4-11.0) 11/10/21 05:30 Neut % (Auto) 55.7 % (42.0-75.0) 11/10/21 05:30 Lymph % (Auto) 29.8 % (21.0-51.0) 11/10/21 05:30 [place] % (Auto) 11.0 % (0.0-13.0) 11/10/21 05:30 Eos % (Auto) 2.2 % (0.9-2.9) 11/10/21 05:30 Baso % (Auto) 1.3 % (0.2-1.0) H 11/10/21 05:30 Neut # (Auto) 3.8 x10^3/uL (2.2-4.8) 11/10/21 05:30 Lymph # (Auto) 2.0 X10^3/uL (1.3-2.9) 11/10/21 05:30 [place] # (Auto) 0.8 x10^3/uL (0.3-0.8) 11/10/21 05:30 Eos # (Auto) 0.2 x10^3/uL (0.0-0.2) 11/10/21 05:30 Baso # (Auto) 0.1 X10^3/uL (0.0-0.1) 11/10/21 05:30 Absolute Nucleated RBC 0.0 /100WBC 11/10/21 05:30 Total Counted 100 11/10/21 05:30 Neutrophils % (Manual) 53 % (39-76) 11/10/21 05:30 Band Neutrophils % 5 % (0-10) 11/10/21 05:30 Lymphocytes % (Manual) 26 % (13-43) 11/10/21 05:30 Monocytes % (Manual) 16 % (4-9) H 11/10/21 05:30 Plt Morphology Comment Normal (NORMAL) 11/10/21 05:30 RBC Morphology Abnormal (NORMAL) A 11/10/21 05:30 Microcytosis Slight A 11/10/21 05:30 Tabitha Cells Slight A 11/10/21 05:30 Schistocytes 1+ A 11/10/21 05:30 Sodium 140 mmol/L (136-145) 11/10/21 05:30 Corrected Sodium TNP 11/10/21 05:30 Potassium 4.8 mmol/L (3.5-5.1) 11/10/21 05:30 Chloride 112 mmol/L (98-107) H 11/10/21 05:30 Carbon Dioxide 18.9 mmol/L (21-32) L 11/10/21 05:30 BUN 20 mg/dL (7-18) H 11/10/21 05:30 Creatinine 1.22 mg/dL (0.55-1.02) H 11/10/21 05:30 Est GFR (MDRD) Af Amer 54 (>60) L 11/10/21 05:30 Est GFR (MDRD) Non-Af 45 (>60) L 11/10/21 05:30 Glucose 86 mg/dL (65-99) 11/10/21 05:30 Calcium 8.1 mg/dL (8.5-10.1) L 11/10/21 05:30 Corrected Calcium 9.2 mg/dL (8.5-10.1) 11/10/21 05:30 Total Bilirubin 0.20 mg/dL (0.2-1.0) 11/10/21 05:30 AST 17 Units/L (15-37) 11/10/21 05:30 ALT 15 Units/L (12-78) 11/10/21 05:30 Alkaline Phosphatase 68 Units/L (46-116) 11/10/21 05:30 Total Protein 6.6 g/dL (6.4-8.2) 11/10/21 05:30 Albumin 2.6 g/dL (3.4-5.0) L 11/10/21 05:30 Globulin 4.0 g/dL (2.5-4.5) 11/10/21 05:30 Albumin/Globulin Ratio 0.7 Ratio (1.1-2.1) L 11/10/21 05:30 Specimen Type Catherized urine 11/06/21 19:55 Urine Color Yellow (YELLOW) 11/06/21 19:55 Urine Appearance Cloudy (CLEAR) 11/06/21 19:55 Urine pH 6.0 (5.0 - 8.0) 11/06/21 19:55 Ur Specific [place] 1.015 (1.000-1.030) 11/06/21 19:55 Urine Protein 3+ (NEGATIVE) 11/06/21 19:55 Urine Glucose (UA) Negative (NEGATIVE) 11/06/21 19:55 Urine Ketones Negative (NEGATIVE) 11/06/21 19:55 Urine Blood 4+ (NEGATIVE) 11/06/21 19: Urine Nitrite Negative (NEGATIVE) 11/06/21 19:55 Urine Bilirubin Negative (NEGATIVE) 11/06/21 19:55 Urine Urobilinogen Normal (NORMAL) 11/06/21 19:55 Ur Leukocyte Esterase 3+ (NEGATIVE) 11/06/21 19:55 Urine RBC Tntc /HPF (0-3) A 11/06/21 19:55 Urine WBC 10-20 /HPF (0-5) A 11/06/21 19:55 Ur Squamous Epith Cells Moderate /HPF (NEGATIVE) 11/06/21 19:55 Amorphous Sediment 1+ /HPF (NEGATIVE) 11/06/21 19:55 Urine Bacteria Trace /HPF (NEGATIVE) 11/06/21 19:55 Ur Culture Indicated? Yes/culture set up 11/06/21 19:55 SARS-CoV-2 (PCR) Negative (NEGATIVE) 11/06/21 21:07 Influenza Type A (PCR) Negative (NEGATIVE) 11/06/21 21:07 Influenza Type B (PCR) Negative (NEGATIVE) 11/06/21 21:07 RSV (PCR) Negative (NEGATIVE) 11/06/21 21:07 Plan (1) E. coli UTI: Status: Acute Plan: NORMAL SALINE AT 100 ML/HR, MEROPENEM 500MG IV Q12H, AND HER HOME MEDICATIONS WERE RESUMED. (2) Failure of outpatient treatment: Status: Acute (3) Abdominal pain: Status: Acute Qualifiers: Abdominal location: generalized Qualified Code(s): R10.84 - Generalized abdominal pain (4) Headache: Status: Acute Qualifiers: Headache chronicity pattern: acute headache Headache type: unspecified Intractability: not intractable Qualified Code(s): R51.9 - Headache, unspecified (5) COPD (chronic obstructive pulmonary disease): Status: Chronic Qualifiers: COPD type: unspecified COPD Qualified Code(s): J44.9 - Chronic obstructive pulmonary disease, unspecified Plan: CONTINUE HOME MEDS (6) HTN (hypertension): Status: Chronic Qualifiers: Hypertension type: primary hypertension Qualified Code(s): I10 - Essential (primary) hypertension Plan: CONTINUE HOME MEDS (7) Hyperlipidemia: Status: Chronic Qualifiers: Hyperlipidemia type: mixed hyperlipidemia Qualified Code(s): E78.2 - Mixed hyperlipidemia Plan: CONTINUE HOME MEDS (8) Chronic renal disease: Status: Chronic Qualifiers: Chronic kidney disease stage: stage 3 (moderate) Chronic kidney disease stage 3 subtype: unspecified whether 3a or 3b Qualified Code(s): N18.30 - Chronic kidney disease, stage 3 unspecified Plan: CONTINUE HOME MEDS (9) CAD (coronary artery disease): Status: Chronic Qualifiers: Associated angina: unspecified whether angina present Coronary Disease- Associated Artery/Lesion type: [place] artery [place] vs. transplanted heart: [place] heart Qualified Code(s): I25.10 - Atherosclerotic heart disease of [place] coronary artery without angina pectoris Plan: CONTINUE HOME MEDS
[2021-11-10] MEDS: CLARITIN PO SCH (21:43)
[2021-11-10] MEDS: LIPITOR TAB 20 MG PO SCH (21:44)
[2021-11-11] MEDS: NS 1,000 ML IV 1,000 ML IV SCH ×4 (03:49→20:43)
[2021-11-11 05:59] LABS: BASOPHILS # (AUTO) 0.1 X10^3/uL (0.0-0.1); BASOPHILS % (AUTO) 1.9 % (0.2-1.0); EOSINOPHILS # (AUTO) 0.2 x10^3/uL (0.0-0.2); EOSINOPHILS % (AUTO) 2.1 % (0.9-2.9); HEMOGLOBIN 8.7 g/dL (12.0-16.0); LYMPHOCYTES # (AUTO) 2.3 X10^3/uL (1.3-2.9); LYMPHOCYTES % (AUTO) 29.7 % (21.0-51.0); MEAN CORPUSCULAR HEMOGLOBIN 27.1 pg (27.0-34.0); MEAN CORPUSCULAR HGB CONC 34.9 g/dL (33.0-35.0); MEAN CORPUSCULAR VOLUME 77.8 fL (80.0-100.0); MEAN PLATELET VOLUME 7.1 fL (7.4-11.0); MONOCYTES # (AUTO) 0.7 x10^3/uL (0.3-0.8); MONOCYTES % (AUTO) 9.7 % (0.0-13.0); NEUTROPHILS # (AUTO) 4.3 x10^3/uL (2.2-4.8); NEUTROPHILS % (AUTO) 56.6 % (42.0-75.0); RED BLOOD COUNT 3.22 X10^6/uL (3.5-5.4); RED CELL DISTRIBUTION WIDTH 14.6 % (11.6-16.5); WHITE BLOOD COUNT 7.7 X10^3/uL (3.6-10.0)
[2021-11-11 06:08] LABS: ALANINE AMINOTRANSFERASE 15 Units/L (12-78); ALBUMIN 2.5 g/dL (3.4-5.0); ALKALINE PHOSPHATASE 69 Units/L (46-116); ASPARTATE AMINO TRANSFERASE 18 Units/L (15-37); BLOOD UREA NITROGEN 15 mg/dL (7-18); CALCIUM 8.1 mg/dL (8.5-10.1); CARBON DIOXIDE 19.8 mmol/L (21-32); CHLORIDE 112 mmol/L (98-107); COR CA(FOR HYPOALB) 9.3 mg/dL (8.5-10.1); CREATININE 1.09 mg/dL (0.55-1.02); SODIUM 141 mmol/L (136-145); TOTAL PROTEIN 6.6 g/dL (6.4-8.2); eGFR NON BLACK RACES 51 (>60)
[2021-11-11] MEDS: APRESOLINE TAB 25 MG PO SCH ×3 (06:35→21:42)
[2021-11-11] MEDS: SYNTHROID 50 mcg TAB PO SCH (06:36)
[2021-11-11 06:44] LABS: BAND NEUTROPHILS % 2 % (0-10)
[2021-11-11 06:45] LABS: PLATELET MORPHOLOGY COMMENT NORMAL (NORMAL)
[2021-11-11 06:48] LABS: MICROCYTOSIS SLIGHT
[2021-11-11 06:49] LABS: SCHISTOCYTES 1+
[2021-11-11] MEDS: COLACE CAP 100 MG PO SCH ×2 (08:22→08:42)
[2021-11-11] MEDS: ISOSORBIDE MONONITRATE ER 24-HR PO SCH (08:22)
[2021-11-11] MEDS: CATAPRES TAB 0.2 MG PO SCH ×2 (08:22→20:44)
[2021-11-11] MEDS: NORVASC TAB 10 MG PO SCH (08:23)
[2021-11-11] MEDS: LEVSIN/MAALOX/LIDOC VISC PO SCH ×4 (08:23→20:46)
[2021-11-11] MEDS: PLAVIX PO SCH (08:23)
[2021-11-11] MEDS: KEPPRA TAB 500 MG PO SCH ×2 (08:23→20:44)
[2021-11-11] MEDS: PROTONIX TAB 40 MG PO SCH ×2 (08:24→20:46)
[2021-11-11] MEDS: SINEMET (PLAIN) 25/100 MG PO SCH ×2 (08:24→20:45)
[2021-11-11] MEDS: PREDNISONE TAB 5 MG PO SCH (08:24)
[2021-11-11] MEDS: FLUOCINONIDE 0.05% TOP SCH ×4 (08:24→20:46)
[2021-11-11] MEDS: ARTIFICIAL TEARS DROPS OP SCH ×2 (08:25→20:45)
[2021-11-11] MEDS: MERREM VIAL 1 G in NS 100 ML IV 100 ML IV SCH ×2 (10:30→21:42)
--- NOTE | 2021-11-11 11:10 | PCM.PROG ---
Progress Note Progress Note for Day of Date of Exam: 11/11/21 Subjective Subjective: PT IS A 80 YEAR OLD FEMALE ADMITTED FOR TREATMENT OF A URINARY TRACT INFECTION, FAILED OUTPATIENT TREATMENT, ACUTE ON CHRONIC RENAL DISEASE, GENERALIZED WEAKNESS, AND HEADACHE. SHE HAS A PMH OF COPD, HTN, HYPERLIPIDEMIA, CHRONIC RENAL DISEASE, AND CAD. THIS MORNING SHE REPORTS HER SYMPTOMS HAVE IMPROVED AND SHE IS FEELING A LITTLE BETTER. LABS WERE OBTAINED: WBC 7.7, HGB 8.7, PLT 213, NA 141, K 4.5, CREATININE 1.09, GLUCOSE 85, URINE CULTURE IS PENDING. SHE IS CURRENTLY RECEIVING NORMAL SALINE AT 100 ML/HR, MEROPENEM 500MG IV Q12H, COLACE 100MG PO BID, MILK OF MAGNESIA 15ML PO QID PRN, MIRALAX 17G PO DAILY, AND GI COCKTAIL 15ML QID, ALONG WITH HER HOME MEDICATIONS. WE WILL CONTINUE WITH CURRENT PLAN OF CARE TODAY. CONTINUE TO CLOESLY MONITOR AND FOLLOW UP LABS IN THE MORNING. Past Medical Family Social History Past Med/Fam/Surg Hx: No changes since H&P Allergies: Allergies lisinopril Allergy (Verified 11/06/21 20:32) Review of Systems ROS: No change since H&P Vital Signs and I&O's Vital Signs: Temperature 98.2 F Pulse Rate [Right] 74 Respiratory Rate 18 Blood Pressure [Right Arm] 178/74 O2 Sat by Pulse Oximetry 98 Intake and Output: Intake & Output 11/08/21 11/09/21 11/10/21 11/11/21 23:59 23:59 23:59 23:59 Intake Total 3155 / 3155 3700 / 3700 4030 / 4030 480 / 480 Output Total 2180 / 2180 2700 / 2700 3300 / 3300 425 / 425 Balance 975 / 975 1000 / 1000 730 / 730 55 / 55 Physical Exam Oriented: Normal Eyes: Normal Ear: Normal Nose: Normal Throat: Normal Respiratory: Diminished Cardiovascular: Normal : Dysuria, Hematuria and Frequency Auscultation: Bowel Sounds: Normal Tenderness: Normal Skin: Normal Musculoskeletal: Normal Psychiatric: Normal Mood Description: Calm Affect: Normal Speech Pattern: Clear and Appropriate Laboratory and Diagnostics Result Diagrams: 11/11/21 05:25 11/11/21 05:25 Labs: 11/09/21 12:03 Urine,Clean Catch Urine Culture - Final 11/06/21 19:55 Urine,Clean Catch Urine Culture - Final Laboratory WBC 7.7 X10^3/uL (3.6-10.0) 11/11/21 05:25 RBC 3.22 X10^6/uL (3.5-5.4) L 11/11/21 05:25 Hgb 8.7 g/dL (12.0-16.0) L 11/11/21 05:25 Hct 25.0 % (36.0-47.0) L 11/11/21 05:25 MCV 77.8 fL (80.0-100.0) L 11/11/21 05:25 MCH 27.1 pg (27.0-34.0) 11/11/21 05:25 MCHC 34.9 g/dL (33.0-35.0) 11/11/21 05:25 RDW 14.6 % (11.6-16.5) 11/11/21 05:25 Plt Count 213 X10^3/uL (150.0-450.0) 11/11/21 05:25 Plt Count Comment Adequate (ADEQUATE) 11/11/21 05:25 MPV 7.1 fL (7.4-11.0) L 11/11/21 05:25 Neut % (Auto) 56.6 % (42.0-75.0) 11/11/21 05:25 Lymph % (Auto) 29.7 % (21.0-51.0) 11/11/21 05:25 [place] % (Auto) 9.7 % (0.0-13.0) 11/11/21 05:25 Eos % (Auto) 2.1 % (0.9-2.9) 11/11/21 05:25 Baso % (Auto) 1.9 % (0.2-1.0) H 11/11/21 05:25 Neut # (Auto) 4.3 x10^3/uL (2.2-4.8) 11/11/21 05:25 Lymph # (Auto) 2.3 X10^3/uL (1.3-2.9) 11/11/21 05:25 [place] # (Auto) 0.7 x10^3/uL (0.3-0.8) 11/11/21 05:25 Eos # (Auto) 0.2 x10^3/uL (0.0-0.2) 11/11/21 05:25 Baso # (Auto) 0.1 X10^3/uL (0.0-0.1) 11/11/21 05:25 Absolute Nucleated RBC 0.0 /100WBC 11/11/21 05:25 Total Counted 100 11/11/21 05:25 Neutrophils % (Manual) 51 % (39-76) 11/11/21 05:25 Band Neutrophils % 2 % (0-10) 11/11/21 05:25 Lymphocytes % (Manual) 35 % (13-43) 11/11/21 05:25 Monocytes % (Manual) 12 % (4-9) H 11/11/21 05:25 Plt Morphology Comment Normal (NORMAL) 11/11/21 05:25 RBC Morphology Abnormal (NORMAL) A 11/11/21 05:25 Microcytosis Slight A 11/11/21 05:25 [place] Cells Slight A 11/10/21 05:30 Schistocytes 1+ A 11/11/21 05:25 Sodium 141 mmol/L (136-145) 11/11/21 05:25 Corrected Sodium TNP 11/11/21 05:25 Potassium 4.5 mmol/L (3.5-5.1) 11/11/21 05:25 Chloride 112 mmol/L (98-107) H 11/11/21 05:25 Carbon Dioxide 19.8 mmol/L (21-32) L 11/11/21 05:25 BUN 15 mg/dL (7-18) 11/11/21 05:25 Creatinine 1.09 mg/dL (0.55-1.02) H 11/11/21 05:25 Est GFR (MDRD) Af Amer > 60 (>60) 11/11/21 05:25 Est GFR (MDRD) Non-Af 51 (>60) L 11/11/21 05:25 Glucose 85 mg/dL (65-99) 11/11/21 05:25 Calcium 8.1 mg/dL (8.5-10.1) L 11/11/21 05:25 Corrected Calcium 9.3 mg/dL (8.5-10.1) 11/11/21 05:25 Total Bilirubin 0.20 mg/dL (0.2-1.0) 11/11/21 05:25 AST 18 Units/L (15-37) 11/11/21 05:25 ALT 15 Units/L (12-78) 11/11/21 05:25 Alkaline Phosphatase 69 Units/L (46-116) 11/11/21 05:25 Total Protein 6.6 g/dL (6.4-8.2) 11/11/21 05:25 Albumin 2.5 g/dL (3.4-5.0) L 11/11/21 05:25 Globulin 4.1 g/dL (2.5-4.5) 11/11/21 05:25 Albumin/Globulin Ratio 0.6 Ratio (1.1-2.1) L 11/11/21 05:25 Specimen Type Catherized urine 11/06/21 19:55 Urine Color Yellow (YELLOW) 11/06/21 19:55 Urine Appearance Cloudy (CLEAR) 11/06/21 19:55 Urine pH 6.0 (5.0 - 8.0) 11/06/21 19:55 Ur Specific [place] 1.015 (1.000-1.030) 11/06/21 19:55 Urine Protein 3+ (NEGATIVE) 11/06/21 19:55 Urine Glucose (UA) Negative (NEGATIVE) 11/06/21 19:55 Urine Ketones Negative (NEGATIVE) 11/06/21 19:55 Urine Blood 4+ (NEGATIVE) 11/06/21 19:55 Urine Nitrite Negative (NEGATIVE) 11/06/21 19:55 Urine Bilirubin Negative (NEGATIVE) 11/06/21 19:55 Urine Urobilinogen Normal (NORMAL) 11/06/21 19:55 Ur Leukocyte Esterase 3+ (NEGATIVE) 11/06/21 19:55 Urine RBC Tntc /HPF (0-3) A 11/06/21 19:55 Urine WBC 10-20 /HPF (0-5) A 11/06/21 19:55 Ur Squamous Epith Cells Moderate /HPF (NEGATIVE) 11/06/21 19:55 Amorphous Sediment 1+ /HPF (NEGATIVE) 11/06/21 19:55 Urine Bacteria Trace /HPF (NEGATIVE) 11/06/21 19:55 Ur Culture Indicated? Yes/culture set up 11/06/21 19:55 SARS-CoV-2 (PCR) Negative (NEGATIVE) 11/06/21 21:07 Influenza Type A (PCR) Negative (NEGATIVE) 11/06/21 21:07 Influenza Type B (PCR) Negative (NEGATIVE) 11/06/21 21:07 RSV (PCR) Negative (NEGATIVE) 11/06/21 21:07 Plan (1) E. coli UTI: Status: Acute Plan: NORMAL SALINE AT 100 ML/HR, MEROPENEM 500MG IV Q12H, AND HER HOME MEDICATIONS WERE RESUMED. (2) Failure of outpatient treatment: Status: Acute (3) Abdominal pain: Status: Acute Qualifiers: Abdominal location: generalized Qualified Code(s): R10.84 - Generalized abdominal pain (4) Headache: Status: Acute Qualifiers: Headache chronicity pattern: acute headache Headache type: unspecified Intractability: not intractable Qualified Code(s): R51.9 - Headache, unspecif ied (5) COPD (chronic obstructive pulmonary disease): Status: Chronic Qualifiers: COPD type: unspecified COPD Qualified Code(s): J44.9 - Chronic obstructive pulmonary disease, unspecified Plan: CONTINUE HOME MEDS (6) HTN (hypertension): Status: Chronic Qualifiers: Hypertension type: primary hypertension Qualified Code(s): I10 - Essential (primary) hypertension Plan: CONTINUE HOME MEDS (7) Hyperlipidemia: Status: Chronic Qualifiers: Hyperlipidemia type: mixed hyperlipidemia Qualified Code(s): E78.2 - Mixed hyperlipidemia Plan: CONTINUE HOME MEDS (8) Chronic renal disease: Status: Chronic Qualifiers: Chronic kidney disease stage: stage 3 (moderate) Chronic kidney disease stage 3 subtype: unspecified whether 3a or 3b Qualified Code(s): N18.30 - Chronic kidney disease, stage 3 unspecified Plan: CONTINUE HOME MEDS (9) CAD (coronary artery disease): Status: Chronic Qualifiers: Associated angina: unspecified whether angina present Coronary Disease- Associated Artery/Lesion type: [place] artery [place] vs. transplanted heart: [place] heart Qualified Code(s): I25.10 - Atherosclerotic heart disease of [place] coronary artery without angina pectoris Plan: CONTINUE HOME MEDS
[2021-11-11] MEDS: LIPITOR TAB 20 MG PO SCH (20:45)
[2021-11-11] MEDS: CLARITIN PO SCH (20:46)
[2021-11-12] MEDS: APRESOLINE TAB 25 MG PO SCH ×2 (05:57→13:35)
[2021-11-12] MEDS: NS 1,000 ML IV 1,000 ML IV SCH (05:57)
[2021-11-12] MEDS: SYNTHROID 50 mcg TAB PO SCH (05:57)
[2021-11-12 06:36] LABS: ALANINE AMINOTRANSFERASE 14 Units/L (12-78); ALBUMIN 2.4 g/dL (3.4-5.0); ALKALINE PHOSPHATASE 66 Units/L (46-116); ASPARTATE AMINO TRANSFERASE 27 Units/L (15-37); BLOOD UREA NITROGEN 13 mg/dL (7-18); CARBON DIOXIDE 18.6 mmol/L (21-32); CHLORIDE 111 mmol/L (98-107); COR CA(FOR HYPOALB) 9.3 mg/dL (8.5-10.1); CREATININE 1.02 mg/dL (0.55-1.02); SODIUM 139 mmol/L (136-145); TOTAL PROTEIN 6.4 g/dL (6.4-8.2); eGFR NON BLACK RACES 55 (>60)
[2021-11-12 07:09] LABS: BASOPHILS # (AUTO) 0.1 X10^3/uL (0.0-0.1); EOSINOPHILS # (AUTO) 0.1 x10^3/uL (0.0-0.2); HEMOGLOBIN 8.6 g/dL (12.0-16.0); MEAN CORPUSCULAR VOLUME 77.3 fL (80.0-100.0); MONOCYTES # (AUTO) 0.9 x10^3/uL (0.3-0.8)
[2021-11-12 07:14] LABS: BASOPHILS % (AUTO) 0.7 % (0.2-1.0); EOSINOPHILS % (AUTO) 1.6 % (0.9-2.9); LYMPHOCYTES # (AUTO) 2.2 X10^3/uL (1.3-2.9); LYMPHOCYTES % (AUTO) 24.2 % (21.0-51.0); MEAN CORPUSCULAR HEMOGLOBIN 26.7 pg (27.0-34.0); MEAN CORPUSCULAR HGB CONC 34.6 g/dL (33.0-35.0); MONOCYTES % (AUTO) 10.1 % (0.0-13.0); NEUTROPHILS # (AUTO) 5.7 x10^3/uL (2.2-4.8); NEUTROPHILS % (AUTO) 63.4 % (42.0-75.0); RED BLOOD COUNT 3.23 X10^6/uL (3.5-5.4); RED CELL DISTRIBUTION WIDTH 14.7 % (11.6-16.5); WHITE BLOOD COUNT 8.9 X10^3/uL (3.6-10.0)
[2021-11-12] MEDS: CATAPRES TAB 0.2 MG PO SCH (09:13)
[2021-11-12] MEDS: KEPPRA TAB 500 MG PO SCH (09:14)
[2021-11-12] MEDS: COLACE CAP 100 MG PO SCH (09:14)
[2021-11-12] MEDS: PROTONIX TAB 40 MG PO SCH (09:14)
[2021-11-12] MEDS: ISOSORBIDE MONONITRATE ER 24-HR PO SCH (09:14)
[2021-11-12] MEDS: PREDNISONE TAB 5 MG PO SCH (09:15)
[2021-11-12] MEDS: SINEMET (PLAIN) 25/100 MG PO SCH (09:15)
[2021-11-12] MEDS: PLAVIX PO SCH (09:15)
[2021-11-12] MEDS: LEVSIN/MAALOX/LIDOC VISC PO SCH ×2 (09:16→13:35)
[2021-11-12] MEDS: NORVASC TAB 10 MG PO SCH (09:16)
[2021-11-12] MEDS: ARTIFICIAL TEARS DROPS OP SCH (09:16)
[2021-11-12] MEDS: MERREM VIAL 1 G in NS 100 ML IV 100 ML IV SCH (09:16)
[2021-11-12] MEDS: FLUOCINONIDE 0.05% TOP SCH ×2 (09:17→13:30)
[2021-11-12] MEDS ORDERED: BACTRIM DS TAB PO ONE (10:25)
[2021-11-12 12:52] VITALS: BP 166/70
== END 2021-11-12 14:20 ==
LOC: MED/SURG
PROVIDERS: ADMIT Obstetrics & Gynecology Obstetrics; ATTEND Internal Medicine
DX: N39.0 Urinary tract infection, site not specified; I25.10 Atherosclerotic heart disease of native coronary artery without angina pectoris; N17.8 Other acute kidney failure; N18.30 Chronic kidney disease, stage 3 unspecified; E78.2 Mixed hyperlipidemia; B96.29 Other Escherichia coli [E. coli] as the cause of diseases classified elsewhere; R10.84 Generalized abdominal pain; J44.9 Chronic obstructive pulmonary disease, unspecified; M31.6 Other giant cell arteritis; R51.9 Headache, unspecified; Z20.822 Contact with and (suspected) exposure to COVID-19; I12.9 Hypertensive chronic kidney disease with stage 1 through stage 4 chronic kidney disease, or unspecified chronic kidney disease

== ENCOUNTER 2023-09-03 12:23 | Observation (INO) ==
--- NOTE | 2023-09-03 12:57 | RAD ---
EXAM: CHEST, 1 VIEW HISTORY: SOB, CCC; COMPARISON: Prior study or studies were utilized for comparison during interpretation with the most relevant rangel ed 08/20/2023 TECHNIQUE: CHEST, 1 VIEW FINDINGS: Chest: Lines and tubes: There is a loop recorder Mediastinum: Cardiac and mediastinal shadow is within normal limits for size and contour. Pulmonary vessels: No pulmonary vascular congestion. Lung lazo: No suspicious airspace opacity. Pleura: No effusion. No pneumothorax. Bones and soft tissues: No acute osseous or soft tissue abnormality. IMPRESSION: 1. No acute cardiopulmonary abnormality THIS IS AN ELECTRONICALLY VERIFIED FINAL REPORT 09/03/2023 12:53 PM - Electronically signed by Julien Stoner MD
--- NOTE | 2023-09-03 13:11 | DR.SOBA ---
HPI Time Seen Time Seen by Provider: 09/03/23 13:09 Primary Care Physician Primary Care Physician: charla HPI Comment HPI Comment: PT HAS HAD SIMILAR SX OF EXCESSIVE SECRETIONS IN THE PAST BUT NOW HAS WORSENED SOME NO FEVER NO CHEST PAIN NO PRESSURE Complaints Chief Complaint:: COUGH, SOB, Sputum, Started earlier today. pt was recently discharged from [facility] from 3.2-4.2 for chest pain. pt currently 2l on 100% Self Treatment fo Chief Complaint: N/a Source History Provided: Patient Mode of Arrival Mode of Arrival: Stretcher Timing Onset of Chief Complaint: 09/03/23 PMH PMH Past Medical History: Yes Past Medical History: Anxiety, COPD, Coronary Artery Disease, Hypertension, Hypothyroidism and Renal Disease Past Surgical History: Yes Surgical History: Appendectomy, Cholecystectomy and Hysterectomy Family History History of Family Medical Conditions: Yes Family Medical History: Coronary Artery Disease and Hypertension Social History Type of Tobacco Use: None Alcohol Use: None Do you use any recreational Drugs:: No Lives With: Alone Infectious screening Have you traveled outside the country in the last 6 months?: No Isolation: Standard PE Vital Signs Vitals: Vital Signs Temperature 99.1 F Pulse Rate 80 Pulse Rate 78 Pulse Rate 120 Respiratory Rate 20 Blood Pressure 138/65 O2 Sat by Pulse Oximetry 97 O2 Sat by Pulse Oximetry 97 O2 Sat by Pulse Oximetry 100 General General Appearance: Alert Head Head Exam: Normal Inspection Eyes Eye exam: Normal Appearance ENT ENT Exam: Normal Exam Chest Chest Inspection: Normal Inspection Respiratory Respiratory Exam: Normal Lung Sounds Bilat Cardiovascular Cardiovascular Exam: Regular Rate, Normal Rhythm and Normal Heart Sounds Skin Skin Exam: Warm and Dry ROR Labs Reviewed 09/03/23 13:00 09/03/23 13:00 Laboratory: WBC 12.2 X10^3/uL (3.6-10.0) H 09/03/23 13:00 RBC 4.37 X10^6/uL (3.5-5.4) 09/03/23 13:00 Hgb 11.5 g/dL (12.0-16.0) L 09/03/23 13:00 Hct 34.5 % (36.0-47.0) L 09/03/23 13:00 MCV 79.0 fL (80.0-100.0) L 09/03/23 13:00 MCH 26.2 pg (27.0-34.0) L 09/03/23 13:00 MCHC 33.2 g/dL (33.0-35.0) 09/03/23 13:00 RDW 16.4 % (11.6-16.5) 09/03/23 13:00 Plt Count 243 X10^3/uL (150.0-450.0) 09/03/23 13:00 MPV 7.9 fL (7.4-11.0) 09/03/23 13:00 Neut % (Auto) 74.4 % (42.0-75.0) 09/03/23 13:00 Lymph % (Auto) 16.4 % (21.0-51.0) L 09/03/23 13:00 [place] % (Auto) 8.2 % (0.0-13.0) 09/03/23 13:00 Eos % (Auto) 0.2 % (0.9-2.9) L 09/03/23 13:00 Baso % (Auto) 0.8 % (0.2-1.0) 09/03/23 13:00 Neut # (Auto) 9.1 x10^3/uL (2.2-4.8) H 09/03/23 13:00 Lymph # (Auto) 2.0 X10^3/uL (1.3-2.9) 09/03/23 13:00 [place] # (Auto) 1.0 x10^3/uL (0.3-0.8) H 09/03/23 13:00 Eos # (Auto) 0.0 x10^3/uL (0.0-0.2) 09/03/23 13:00 Baso # (Auto) 0.1 X10^3/uL (0.0-0.1) 09/03/23 13:00 Absolute Nucleated RBC 0.1 /100WBC 09/03/23 13:00 D-Dimer 1.76 ug/ml (0.0-0.57) H 09/03/23 14:55 Sample Site Rr 09/03/23 13:20 ABG pH 7.450 (7.35-7.45) 09/03/23 13:20 ABG pCO2 30.0 mmHg (35.0-45.0) L 09/03/23 13:20 ABG pO2 119.0 mmHg (80.0-100.0) H 09/03/23 13:20 ABG HCO3 20.9 mmol/L (22-26) L 09/03/23 13:20 ABG O2 Saturation 99.0 % (90-100) 09/03/23 13:20 ABG Base Excess -2.2 mmol/L (-2.0-2.0) L 09/03/23 13:20 [place]an Test Pos 09/03/23 13:20 A-a Gradient 43.0 mmHg 09/03/23 13:20 FiO2 28.0 09/03/23 13:20 Blood Gas Comments Pt joe well cdn 09/03/23 13:20 Sodium 142 mmol/L (136-145) 09/03/23 13:00 Corrected Sodium TNP 09/03/23 13:00 Potassium 3.8 mmol/L (3.5-5.1) 09/03/23 13:00 Chloride 105 mmol/L (98-107) 09/03/23 13:00 Carbon Dioxide 21.8 mmol/L (21-32) 09/03/23 13:00 BUN 25 mg/dL (7-18) H 09/03/23 13:00 Creatinine 1.97 mg/dL (0.55-1.02) H 09/03/23 13:00 Est GFR (MDRD) Af Amer 31 (>60) L 09/03/23 13:00 Est GFR (MDRD) Non-Af 26 (>60) L 09/03/23 13:00 Glucose 105 mg/dL (65-99) H 09/03/23 13:00 Calcium 8.3 mg/dL (8.5-10.1) L 09/03/23 13:00 Corrected Calcium 8.9 mg/dL (8.5-10.1) 09/03/23 13:00 Total Bilirubin 0.80 mg/dL (0.2-1.0) 09/03/23 13:00 AST 24 Units/L (15-37) 09/03/23 13:00 ALT 16 Units/L (12-78) 09/03/23 13:00 Alkaline Phosphatase 71 Units/L (46-116) 09/03/23 13:00 Troponin I High Sens 83.3 ng/L (4.0-60.0) H* 09/03/23 14:55 B-Natriuretic Peptide 928 pg/mL (0-79) H 09/03/23 13:00 Total Protein 7.9 g/dL (6.4-8.2) 09/03/23 13:00 Albumin 3.2 g/dL (3.4-5.0) L 09/03/23 13:00 Globulin 4.7 g/dL (2.5-4.5) H 09/03/23 13:00 Albumin/Globulin Ratio 0.7 Ratio (1.1-2.1) L 09/03/23 13:00 SARS-CoV-2 (PCR) Negative (NEGATIVE) 09/03/23 12:39 Influenza Type A (PCR) Negative (NEGATIVE) 09/03/23 12:39 Influenza Type B (PCR) Negative (NEGATIVE) 09/03/23 12:39 RSV (PCR) Negative (NEGATIVE) 09/03/23 12:39 EKG Rate: 85 Rhythm: NSR Block: None Opioid Opioid Risk Tool Age (Diogo box if 16-45): No History of Preadolescent Sexual Abuse: No Total: 0 Total Score Risk Category: Low Risk Copyright: [place] predicting aberrant behaviors Discharge Plan Diagnosis Discharge Problem: Chest congestion, Elevated troponin Hospital Course Hospital Course: spoke with Dr Hi and discussed pt sx and workup and slightly rising Troponin and he agreed to admit 5 p Discharge Plan Patient Disposition: 09 ADMITTED INPATIENT Condition: Stable Prescriptions: No Action acetaminophen [Tylenol] 325 mg Tablet 650 mg PO Q6H PRN atorvastatin 20 mg Tablet 20 mg PO QHS polyethylene glycol 3350 [Miralax] 17 gram Powder In Packet 17 g PO PRN PRN (Reason: Constipation) levetiracetam [Keppra] 500 mg Tablet 500 mg PO BID fluocinonide 0.05 % Ointment 1 applic TOPICAL BID-QID PRN clopidogrel [Plavix] 75 mg Tablet 75 mg PO DAILY chlorthalidone 50 mg Tablet 50 mg PO DAILY isosorbide mononitrate 120 mg Tablet Extended Release 24 Hr 120 mg PO QAM clonidine HCl 0.2 mg Tablet 0.2 mg PO BID triamcinolone acetonide 0.025 % Cream 1 applic TOPICAL PRN PRN (Reason: Rash) prednisone 1 mg Tablet 5 mg PO DAILY amlodipine [Norvasc] 10 mg Tablet 10 mg PO DAILY levothyroxine [Synthroid] 50 mcg Tablet 50 mcg PO DAILY pantoprazole [Protonix] 40 mg Tablet,Delayed Release (Dr/Ec) 40 mg PO BID docusate sodium [Colace] 100 mg Capsule 100 mg PO DAILY hydralazine 50 mg Tablet 50 mg PO TID colchicine 0.6 mg Tablet 0.6 mg PO PRN PRN (Reason: GOUT) carbidopa-levodopa 25-100 mg Tablet 1 tab PO BID loratadine [Claritin] 10 mg Tablet 10 mg PO QHS carboxymethylcellulose sodium [Refresh Plus] 0.5 % Dropperette 1 drp OPHTHALMIC (EYE) BID nystatin-triamcinolone Cream 1 applic TOPICAL BID sulfamethoxazole-trimethoprim [Bactrim DS] 800-160 mg Tablet 1 tab PO BID Qty: 6 0RF Rx Instructions: TAKE ONE TABLET TWICE A DAY X 3 DAYS. TAKE WITH FOOD. ondansetron 4 mg Tablet,Disintegrating 4 mg PO Q6H PRNQty: 30 3RF Rx Instructions: TAKE ONE TABLET EVERY 6 HOURS NEEDED FOR NAUSEA Health Concerns: Post Hospitalization: new medications and changes needed to prevent readmission or further decline. Pt educated and given instructions on all concerns. Plan of Treatment: Continue with present treatment and follow up plan. Pt is to keep follow up appointment as instructed and take medications as ordered. Follow ups/Referrals Follow ups/Referrals: David Perez [Primary Care Provider] - 3 days Instructions Stand Alone Forms: Post Hospital Follow Up Care
--- NOTE | 2023-09-03 13:14 | EKG ---
Test Reason : SOB Blood Pressure : */* mmHG Vent. Rate : 85 BPM Atrial Rate : 85 BPM P-R Int : 154 ms QRS Dur : 104 ms QT Int : 430 ms P-R-T Axes : 58 90 31 degrees QTc Int : 511 ms Normal sinus rhythm Possible Left atrial enlargement Incomplete right bundle branch block Right ventricular hypertrophy with repolarization abnormality Abnormal ECG When compared with ECG of 20-AUG-2023 12:45, Nonspecific T wave abnormality now evident in Anterior leads Confirmed by Liam Hernandez MD ([id number]) on 09/04/2023 7:40:05 AM Referred By: Confirmed By: Liam Hernandez MD
[2023-09-03 13:16] LABS: BASOPHILS # (AUTO) 0.1 X10^3/uL (0.0-0.1); BASOPHILS % (AUTO) 0.8 % (0.2-1.0); EOSINOPHILS % (AUTO) 0.2 % (0.9-2.9); HEMATOCRIT 34.5 % (36.0-47.0); HEMOGLOBIN 11.5 g/dL (12.0-16.0); LYMPHOCYTES % (AUTO) 16.4 % (21.0-51.0); MEAN CORPUSCULAR HEMOGLOBIN 26.2 pg (27.0-34.0); MEAN CORPUSCULAR HGB CONC 33.2 g/dL (33.0-35.0); MEAN PLATELET VOLUME 7.9 fL (7.4-11.0); MONOCYTES % (AUTO) 8.2 % (0.0-13.0); NEUTROPHILS # (AUTO) 9.1 x10^3/uL (2.2-4.8); NEUTROPHILS % (AUTO) 74.4 % (42.0-75.0); PLATELET COUNT 243 X10^3/uL (150.0-450.0); RED BLOOD COUNT 4.37 X10^6/uL (3.5-5.4); RED CELL DISTRIBUTION WIDTH 16.4 % (11.6-16.5); WHITE BLOOD COUNT 12.2 X10^3/uL (3.6-10.0)
[2023-09-03 13:23] LABS: ABG BASE EXCESS -2.2 mmol/L (-2.0-2.0); ABG HCO3 20.9 mmol/L (22-26)
[2023-09-03 13:25] LABS: ABG ALLEN TEST POS
[2023-09-03 13:41] LABS: ALANINE AMINOTRANSFERASE 16 Units/L (12-78); ALBUMIN 3.2 g/dL (3.4-5.0); ALKALINE PHOSPHATASE 71 Units/L (46-116); ASPARTATE AMINO TRANSFERASE 24 Units/L (15-37); BLOOD UREA NITROGEN 25 mg/dL (7-18); CALCIUM 8.3 mg/dL (8.5-10.1); CARBON DIOXIDE 21.8 mmol/L (21-32); CHLORIDE 105 mmol/L (98-107); COR CA(FOR HYPOALB) 8.9 mg/dL (8.5-10.1); CREATININE 1.97 mg/dL (0.55-1.02); GLUCOSE 105 mg/dL (65-99); POTASSIUM 3.8 mmol/L (3.5-5.1); SODIUM 142 mmol/L (136-145); TOTAL PROTEIN 7.9 g/dL (6.4-8.2); eGFR NON BLACK RACES 26 (>60)
[2023-09-03] MEDS ORDERED: CATAPRES TAB 0.2 MG ONE (15:38)
[2023-09-03] MEDS: CATAPRES TAB 0.2 MG PO ONE (15:40)
[2023-09-03] MEDS ORDERED: OMNIPAQUE 350 mg/mL 100 mL BTL 100 ML ONE (15:50)
--- NOTE | 2023-09-03 16:45 | CT ---
EXAM:CTA, CHESTHISTORY:Elevated D-dimerCOMPARISON:None.TECHNIQUE:Axial CT images of the chest were obtained after the administration of 80 mL Omnipaque 350 IV contrast utilizing a CTA protocol. 3D MIPS were performed and reviewed for further evaluation.Radiation dose: 302.06 mGy-cm total DLPFINDINGS:Trace pericardial effusion.No mediastinal or hilar lymphadenopathy.Aorta is normal in caliber without dissection.Pulmonary arteries are normal in caliber without filling defects to suggest a pulmonary embolus.Airways are widely patent.Thyroid appears normal.No pleural effusion.No focal infiltrate.No pneumothorax.No concerning lung parenchymal lesion identified.Imaged portion of the upper abdomen is unremarkable.No acute osseous abnormality.IMPRESSION:No acute intrathoracic abnormality, specifically, no pulmonary embolus identified.THIS IS AN ELECTRONICALLY VERIFIED FINAL REPORT09/03/2023 4:38 PM - Electronically signed by Wili Bolanos MD
[2023-09-03] MEDS: ROCEPHIN VIAL 1 GRAM IVP ONE (18:01)
[2023-09-03] MEDS: ROCEPHIN VIAL 1 GRAM ONE (18:40)
[2023-09-03] MEDS ORDERED: ULTRAM PO PRN (19:23)
[2023-09-03 20:19] VITALS: BMI 25.8
[2023-09-03] MEDS: SINEMET (PLAIN) 25/100 MG PO SCH (21:07)
[2023-09-03] MEDS: NS 1,000 ML IV 1,000 ML IV SCH (21:08)
[2023-09-03] MEDS: PROTONIX TAB 40 MG PO SCH (21:08)
[2023-09-03] MEDS: CATAPRES TAB 0.3 MG PO SCH (21:08)
[2023-09-03] MEDS: CLARITIN PO SCH (21:08)
[2023-09-03] MEDS: LIPITOR TAB 10 MG PO SCH (21:08)
[2023-09-03] MEDS: APRESOLINE TAB 25 MG PO SCH (21:08)
--- NOTE | 2023-09-04 04:31 | EKG ---
Test Reason : elevated troponin Blood Pressure : */* mmHG Vent. Rate : 75 BPM Atrial Rate : 75 BPM P-R Int : 164 ms QRS Dur : 106 ms QT Int : 472 ms P-R-T Axes : 52 83 50 degrees QTc Int : 527 ms Normal sinus rhythm Incomplete right bundle branch block Possible Right ventricular hypertrophy Nonspecific T wave abnormality Abnormal ECG When compared with ECG of 03-SEP-2023 13:11, (Unconfirmed) Nonspecific T wave abnormality now evident in Lateral leads Confirmed by Liam Hernandez MD ([id number]) on 09/04/2023 7:36:01 AM Referred By: Confirmed By: Liam Hernandez MD
[2023-09-04] MEDS: SYNTHROID 75 mcg TAB PO SCH (05:33)
[2023-09-04] MEDS: KEPPRA ORAL SOLN PO SCH (05:38)
[2023-09-04] MEDS ORDERED: MONOKET or IMDUR PO SCH (09:00)
[2023-09-04] MEDS ORDERED: LINZESS PO SCH (09:00)
[2023-09-04] MEDS: PLAVIX PO SCH (09:10)
[2023-09-04] MEDS: TOPROL XL PO SCH ×2 (09:11→21:16)
[2023-09-04] MEDS: ISOSORBIDE MONONITRATE ER 24-HR PO SCH ×2 (09:12→21:16)
[2023-09-04] MEDS: COLACE CAP 100 MG PO SCH (09:13)
[2023-09-04] MEDS: PREDNISONE TAB 5 MG PO SCH (09:13)
[2023-09-04] MEDS: NORVASC TAB 10 MG PO SCH ×2 (09:14→21:16)
[2023-09-04] MEDS: KEPPRA TAB 500 MG PO SCH (09:15)
--- NOTE | 2023-09-04 09:21 | DR.H&P ---
H&P History & Physical for Day of: H&P Date: 09/04/23 Chief Complaint Chief Complaint: Cough, congestion Allergies Allergies Allergy/AdvReac Type Severity Reaction Status Date / Time lisinopril Allergy Verified 11/06/21 20:32 History of Present Illness History of Present Illness: Patient is a 82-year-old female with a past medical history of hypertension, hypothyroidism, CKD, CAD, COPD, presenting with cough and congestion for the past few days. She is a poor historian. Labs/imaging: WBC 12.2, hemoglobin 11.5, platelets 243, sodium 142, potassium 3.8, creatinine 1.97, glucose 105, D-dimer 1.76, ABG: pH 7.45, pCO2 30, pO2 119, HCO3 20, O2 sat 99% on FiO2 28%, BNP 928, troponin 102, CTA of the chest was obtained that was negative for pulmonary embolism or any other acute findings. Chest x-ray was also negative for acute cardiopulmonary findings. On exam patient does have sputum production that is yellow/greenish in color. She denies any chest pain. Will treat as pneumonia as this time. Patient is on antibiotics Rocephin. Will order AIT send out. Will consult cardiology for elevated troponin. Continue to trend. Patient was recently hospitalized at [facility] for elevated troponin, will get discharge summary to review. Restart home medications. Continue to closely monitor and follow-up labs/imaging. Past Medical History Past Medical History: Anxiety, COPD, Coronary Artery Disease, Hypertension, Hypothyroidism and Renal Disease Additional Medical History: GIANT CELL ARTERITIS Past Surgical History Surgical History: Appendectomy, Cholecystectomy and Hysterectomy Family History Family Medical History: Diabetes Mellitus, Heart Failure and Hypertension Social History Does patient currently use any type of tobacco product: No Have you used tobacco products in the last 12 months: No Type of Tobacco Use: None Does any household member use tobacco: No Alcohol Use: None Drug Use: None Medications Home Medications: Home Medications Medication Instructions Recorded Confirmed Type amlodipine 10 mg tablet (Norvasc) 10 mg PO DAILY 11/06/21 09/03/23 History atorvastatin 20 mg tablet 20 mg PO QHS 11/06/21 09/03/23 History carbidopa 25 mg-levodopa 100 mg 1 tab PO BID 11/06/21 09/03/23 History tablet clopidogrel 75 mg tablet (Plavix) 75 mg PO DAILY 11/06/21 09/03/23 History colchicine 0.6 mg tablet 0.6 mg PO PRN PRN GOUT 11/06/21 09/03/23 History docusate sodium 100 mg capsule 100 mg PO DAILY 11/06/21 09/03/23 History (Colace) fluocinonide 0.05 % topical 1 applic topical BID-QID PRN 11/06/21 09/03/23 History ointment isosorbide mononitrate 120 mg 120 mg PO QAM 11/06/21 09/03/23 History tablet,extended release 24 hr levothyroxine 50 mcg tablet 75 mcg PO DAILY 11/06/21 09/03/23 History (Synthroid) loratadine 10 mg tablet (Claritin) 10 mg PO QHS 11/06/21 09/03/23 History pantoprazole 40 mg tablet,delayed 40 mg PO BID 11/06/21 09/03/23 History release (Protonix) prednisone 1 mg tablet 5 mg PO DAILY 11/06/21 09/03/23 History triamcinolone acetonide 0.025 % 1 applic topical PRN PRN Rash 11/06/21 09/03/23 History topical cream clonidine HCl 0.3 mg tablet 0.3 mg PO BID 09/03/23 09/03/23 History hydralazine 100 mg tablet 100 mg PO TID 09/03/23 09/03/23 History levetiracetam 250 mg tablet 250 mg PO BID 09/03/23 09/03/23 History levothyroxine 75 mcg tablet 75 mcg PO DAILY 09/03/23 09/03/23 History (Synthroid) linaclotide 72 mcg capsule 72 mcg PO QAM 09/03/23 09/03/23 History (Linzess) metoprolol succinate 25 mg 12.5 mg PO DAILY 09/03/23 09/03/23 History tablet,extended release 24 hr tramadol 50 mg tablet 50 mg PO Q6H 09/03/23 09/03/23 History Labs 09/03/23 13:00 09/03/23 13:00 Labs: Laboratory WBC 12.2 X10^3/uL (3.6-10.0) H 09/03/23 13:00 RBC 4.37 X10^6/uL (3.5-5.4) 09/03/23 13:00 Hgb 11.5 g/dL (12.0-16.0) L 09/03/23 13:00 Hct 34.5 % (36.0-47.0) L 09/03/23 13:00 MCV 79.0 fL (80.0-100.0) L 09/03/23 13:00 MCH 26.2 pg (27.0-34.0) L 09/03/23 13:00 MCHC 33.2 g/dL (33.0-35.0) 09/03/23 13:00 RDW 16.4 % (11.6-16.5) 09/03/23 13:00 Plt Count 243 X10^3/uL (150.0-450.0) 09/03/23 13:00 MPV 7.9 fL (7.4-11.0) 09/03/23 13:00 Neut % (Auto) 74.4 % (42.0-75.0) 09/03/23 13:00 Lymph % (Auto) 16.4 % (21.0-51.0) L 09/03/23 13:00 [place] % (Auto) 8.2 % (0.0-13.0) 09/03/23 13:00 Eos % (Auto) 0.2 % (0.9-2.9) L 09/03/23 13:00 Baso % (Auto) 0.8 % (0.2-1.0) 09/03/23 13:00 Neut # (Auto) 9.1 x10^3/uL (2.2-4.8) H 09/03/23 13:00 Lymph # (Auto) 2.0 X10^3/uL (1.3-2.9) 09/03/23 13:00 [place] # (Auto) 1.0 x10^3/uL (0.3-0.8) H 09/03/23 13:00 Eos # (Auto) 0.0 x10^3/uL (0.0-0.2) 09/03/23 13:00 Baso # (Auto) 0.1 X10^3/uL (0.0-0.1) 09/03/23 13:00 Absolute Nucleated RBC 0.1 /100WBC 09/03/23 13:00 D-Dimer 1.76 ug/ml (0.0-0.57) H 09/03/23 14:55 Sample Site Rr 09/03/23 13:20 ABG pH 7.450 (7.35-7.45) 09/03/23 13:20 ABG pCO2 30.0 mmHg (35.0-45.0) L 09/03/23 13:20 ABG pO2 119.0 mmHg (80.0-100.0) H 09/03/23 13:20 ABG HCO3 20.9 mmol/L (22-26) L 09/03/23 13:20 ABG O2 Saturation 99.0 % (90-100) 09/03/23 13:20 ABG Base Excess -2.2 mmol/L (-2.0-2.0) L 09/03/23 13:20 Manan Test Pos 09/03/23 13:20 A-a Gradient 43.0 mmHg 09/03/23 13:20 FiO2 28.0 09/03/23 13:20 Blood Gas Comments Pt joe well cdn 09/03/23 13:20 Sodium 142 mmol/L (136-145) 09/03/23 13:00 Corrected Sodium TNP 09/03/23 13:00 Potassium 3.8 mmol/L (3.5-5.1) 09/03/23 13:00 Chloride 105 mmol/L (98-107) 09/03/23 13:00 Carbon Dioxide 21.8 mmol/L (21-32) 09/03/23 13:00 BUN 25 mg/dL (7-18) H 09/03/23 13:00 Creatinine 1.97 mg/dL (0.55-1.02) H 09/03/23 13:00 Est GFR (MDRD) Af Amer 31 (>60) L 09/03/23 13:00 Est GFR (MDRD) Non-Af 26 (>60) L 09/03/23 13:00 Glucose 105 mg/dL (65-99) H 09/03/23 13:00 Calcium 8.3 mg/dL (8.5-10.1) L 09/03/23 13:00 Corrected Calcium 8.9 mg/dL (8.5-10.1) 09/03/23 13:00 Total Bilirubin 0.80 mg/dL (0.2-1.0) 09/03/23 13:00 AST 24 Units/L (15-37) 09/03/23 13:00 ALT 16 Units/L (12-78) 09/03/23 13:00 Alkaline Phosphatase 71 Units/L (46-116) 09/03/23 13:00 Troponin I High Sens 102.1 ng/L (4.0-60.0) H* 09/04/23 01:20 B-Natriuretic Peptide 928 pg/mL (0-79) H 09/03/23 13:00 Total Protein 7.9 g/dL (6.4-8.2) 09/03/23 13:00 Albumin 3.2 g/dL (3.4-5.0) L 09/03/23 13:00 Globulin 4.7 g/dL (2.5-4.5) H 09/03/23 13:00 Albumin/Globulin Ratio 0.7 Ratio (1.1-2.1) L 09/03/23 13:00 SARS-CoV-2 (PCR) Negative (NEGATIVE) 09/03/23 12:39 Influenza Type A (PCR) Negative (NEGATIVE) 09/03/23 12:39 Influenza Type B (PCR) Negative (NEGATIVE) 09/03/23 12:39 RSV (PCR) Negative (NEGATIVE) 09/03/23 12:39 Review of Systems Constitutional: No Symptoms Reported Eyes: No Symptoms Reported ENT: No Symptoms Reported Respiratory: Cough Cardiovascular: No Symptoms Reported Gastrointestinal: No Symptoms Reported Genitourinary: No Symptoms Reported Musculoskeletal: No Symptoms Reported Skin: No Symptoms Reported Neurological: No Symptoms Reported Physical Exam Vital Signs: Vital Signs Temperature 97.1 F Temperature 98.1 F Pulse Rate [Left Radial] 92 Pulse Rate [Left Radial] 81 Respiratory Rate 17 Respiratory Rate 20 Blood Pressure [left leg] 168/72 Blood Pressure [left leg] 169/74 O2 Sat by Pulse Oximetry 96 O2 Sat by Pulse Oximetry 99 Oriented: Normal Eyes: Normal Ear: Normal Nose: Normal Throat: Normal Respiratory: Diminished Throughout Cardiovascular: Normal : Normal Auscultation: Bowel Sounds: Normal Palpation: Normal Tenderness: Normal Skin: Normal Musculoskeletal: Normal Psychiatric: Normal Mood Description: Calm and Appropriate Affect: Normal Speech Pattern: Clear and Appropriate Assessment/Plan (1) Pneumonia: Status: Acute Plan: Continue antibiotics (2) COPD (chronic obstructive pulmonary disease): Qualifiers: COPD type: unspecified COPD Qualified Code(s): J44.9 - Chronic obstr uctive pulmonary disease, unspecified Status: Chronic (3) HTN (hypertension): Qualifiers: Hypertension type: primary hypertension Qualified Code(s): I10 - Essential (primary) hypertension Status: Chronic (4) Hyperlipidemia: Qualifiers: Hyperlipidemia type: mixed hyperlipidemia Qualified Code(s): E78.2 - Mixed hyperlipidemia Status: Chronic (5) Chronic renal disease: Qualifiers: Chronic kidney disease stage: stage 3 (moderate) Chronic kidney disease stage 3 subtype: unspecified whether 3a or 3b Qualified Code(s): N18.30 - Chronic kidney disease, stage 3 unspecified Status: Chronic (6) Elevated troponin: Status: Acute Plan: Consult cardiology (7) Chest congestion: Status: Acute Review H&P Reviewed: Yes Patient was examined?: Yes
[2023-09-04] MEDS: ROCEPHIN VIAL 1 GRAM IVP SCH (09:28)
[2023-09-04] MEDS: LOVENOX INJ 30 MG SYR SC SCH (09:41)
[2023-09-04] MEDS: PATIENT'S HOME MEDICATION PO SCH (09:56)
[2023-09-04 10:00] LABS: BASOPHILS # (AUTO) 0.2 X10^3/uL (0.0-0.1); EOSINOPHILS # (AUTO) 0.1 x10^3/uL (0.0-0.2); HEMATOCRIT 31.6 % (36.0-47.0); HEMOGLOBIN 10.7 g/dL (12.0-16.0); LYMPHOCYTES # (AUTO) 1.4 X10^3/uL (1.3-2.9); LYMPHOCYTES % (AUTO) 12.2 % (21.0-51.0); MEAN CORPUSCULAR HEMOGLOBIN 28.1 pg (27.0-34.0); MEAN CORPUSCULAR HGB CONC 33.7 g/dL (33.0-35.0); MEAN CORPUSCULAR VOLUME 83.6 fL (80.0-100.0); MEAN PLATELET VOLUME 8.1 fL (7.4-11.0); MONOCYTES # (AUTO) 0.9 x10^3/uL (0.3-0.8); MONOCYTES % (AUTO) 8.2 % (0.0-13.0); NEUTROPHILS # (AUTO) 8.8 x10^3/uL (2.2-4.8); NEUTROPHILS % (AUTO) 76.6 % (42.0-75.0); PLATELET COUNT 221 X10^3/uL (150.0-450.0); RED BLOOD COUNT 3.79 X10^6/uL (3.5-5.4); RED CELL DISTRIBUTION WIDTH 16.6 % (11.6-16.5); WHITE BLOOD COUNT 11.5 X10^3/uL (3.6-10.0)
[2023-09-04 10:16] LABS: ALANINE AMINOTRANSFERASE < 6 Units/L (12-78); ALBUMIN 2.6 g/dL (3.4-5.0); ALKALINE PHOSPHATASE 67 Units/L (46-116); ASPARTATE AMINO TRANSFERASE 20 Units/L (15-37); BLOOD UREA NITROGEN 20 mg/dL (7-18); CALCIUM 7.6 mg/dL (8.5-10.1); CARBON DIOXIDE 20.1 mmol/L (21-32); CHLORIDE 107 mmol/L (98-107); COR CA(FOR HYPOALB) 8.7 mg/dL (8.5-10.1); CREATININE 1.69 mg/dL (0.55-1.02); GLUCOSE 103 mg/dL (65-99); POTASSIUM 3.6 mmol/L (3.5-5.1); SODIUM 143 mmol/L (136-145); TOTAL PROTEIN 6.8 g/dL (6.4-8.2); eGFR NON BLACK RACES 31 (>60)
--- NOTE | 2023-09-04 15:01 | DR.CONSULT ---
CONSULT Consultation for Day of: Date: 09/04/23 Chief Complaint Chief Complaint: elevated troponins Allergies Allergies Allergy/AdvReac Type Severity Reaction Status Date / Time lisinopril Allergy Verified 11/06/21 20:32 History of Present Illness History of Present Illness: 82- bad htn- sees Resendez/alena- lives at [facility] [place] [facility]- no walking for year/more due to parkinsons- 2 weeeks ago - came to er anf found to have elevated troponin- sent to tracee- bp high >200- echo: lvh/good lv, stress : possible lat ischemia- getting treated medically- never has CP/does not walk- came back to ER and trops still elevated- no cp. no ekg change- bp still up. pulse 80-90 on tiny BB Past Medical History Past Medical History: Anxiety, COPD, Coronary Artery Disease, Hypertension, Hypothyroidism and Renal Disease Additional Medical History: GIANT CELL ARTERITIS Past Surgical History Surgical History: Appendectomy, Cholecystectomy and Hysterectomy Family History Family Medical History: Diabetes Mellitus, Heart Failure and Hypertension Social History Does patient currently use any type of tobacco product: No Have you used tobacco products in the last 12 months: No Type of Tobacco Use: None Does any household member use tobacco: No Alcohol Use: None Drug Use: None Medications Home Medications: lisinopril Allergy (Verified 11/06/21 20:32) CONTINUE taking the following medications clonidine HCl 0.3 mg tablet 0.3 mg PO BID 09/03/23 [History] hydralazine 100 mg tablet 100 mg PO TID 09/03/23 [History] levetiracetam 250 mg tablet 250 mg PO BID 09/03/23 [History] levothyroxine 75 mcg tablet (Synthroid) 75 mcg PO DAILY 09/03/23 [History] linaclotide 72 mcg capsule (Linzess) 72 mcg PO QAM 09/03/23 [History] metoprolol succinate 25 mg tablet,extended release 24 hr 12.5 mg PO DAILY 09/03/23 [History] tramadol 50 mg tablet 50 mg PO Q6H 09/03/23 [History] Physical Exam Vital Signs: Vital Signs Temperature 97.1 F Temperature 97.1 F Pulse Rate [Left Radial] 95 Pulse Rate [Left Radial] 92 Respiratory Rate 18 Respiratory Rate 17 Blood Pressure [left leg] 168/72 Blood Pressure [Left Arm] 132/62 O2 Sat by Pulse Oximetry 97 O2 Sat by Pulse Oximetry 96 nad clear lungs no bruits soft ricardo mild edema labs" hct 31, cr 1.69, trops from 08/19 to 09/03: 115/138/68/83/102/102/98/112 ekg: nsr irbbb ns t ( no change from 08/19) elevated d dimer but negative CTA for PE Plan (1) Pneumonia: Status: Acute (2) COPD (chronic obstructive pulmonary disease): Status: Chronic Qualifiers: COPD type: unspecified COPD Qualified Code(s): J44.9 - Chronic obstructive pulmonary disease, unspecified (3) HTN (hypertension): Status: Chronic Qualifiers: Hypertension type: primary hypertension Qualified Code(s): I10 - Essential (primary) hypertension (4) Hyperlipidemia: Status: Chronic Qualifiers: Hyperlipidemia type: mixed hyperlipidemia Qualified Code(s): E78.2 - Mixed hyperlipidemia (5) Chronic renal disease: Status: Chronic Qualifiers: Chronic kidney disease stage: stage 3 (moderate) Chronic kidney disease stage 3 subtype: unspecified whether 3a or 3b Qualified Code(s): N18.30 - Chronic kidney disease, stage 3 unspecified (6) Elevated troponin: Status: Acute Narrative Support Text: chronic for 2 weeks w/o cp/ w/o ekg changes- suspect chronic due ti htn plus possiblity of cad based on recent stress Plan: push bb/ccb to lower bp- no need to do more troponins unless sx warrant (7) Chest congestion: Status: Acute
[2023-09-04] MEDS ORDERED: CONSULT PHARMACY - POTASSIUM & MAGNESIUM XX SCH (17:00)
[2023-09-04] MEDS: MAG-OX TAB PO SCH (17:34)
[2023-09-04] MEDS: MICRO K EXTEN CAP 10 MEQ PO ONE (17:35)
[2023-09-04] MEDS: MAGNESIUM SULFATE 1 GRAM/100 mL PREMIX 1 G/100 ML BAG IV SCH (18:43)
[2023-09-05 06:14] LABS: BASOPHILS # (AUTO) 0.1 X10^3/uL (0.0-0.1); BASOPHILS % (AUTO) 1.1 % (0.2-1.0); EOSINOPHILS # (AUTO) 0.1 x10^3/uL (0.0-0.2); HEMATOCRIT 26.2 % (36.0-47.0); HEMOGLOBIN 8.9 g/dL (12.0-16.0); LYMPHOCYTES # (AUTO) 1.4 X10^3/uL (1.3-2.9); LYMPHOCYTES % (AUTO) 15.3 % (21.0-51.0); MEAN CORPUSCULAR HEMOGLOBIN 28.2 pg (27.0-34.0); MEAN CORPUSCULAR HGB CONC 34.1 g/dL (33.0-35.0); MEAN CORPUSCULAR VOLUME 82.8 fL (80.0-100.0); MEAN PLATELET VOLUME 7.9 fL (7.4-11.0); MONOCYTES % (AUTO) 10.7 % (0.0-13.0); NEUTROPHILS # (AUTO) 6.7 x10^3/uL (2.2-4.8); NEUTROPHILS % (AUTO) 71.9 % (42.0-75.0); PLATELET COUNT 190 X10^3/uL (150.0-450.0); RED BLOOD COUNT 3.17 X10^6/uL (3.5-5.4); RED CELL DISTRIBUTION WIDTH 16.6 % (11.6-16.5); WHITE BLOOD COUNT 9.4 X10^3/uL (3.6-10.0)
[2023-09-05 06:25] LABS: ALANINE AMINOTRANSFERASE < 6 Units/L (12-78); ALBUMIN 2.3 g/dL (3.4-5.0); ALKALINE PHOSPHATASE 59 Units/L (46-116); ASPARTATE AMINO TRANSFERASE 28 Units/L (15-37); BLOOD UREA NITROGEN 17 mg/dL (7-18); CALCIUM 7.2 mg/dL (8.5-10.1); CARBON DIOXIDE 19.5 mmol/L (21-32); CHLORIDE 110 mmol/L (98-107); COR CA(FOR HYPOALB) 8.6 mg/dL (8.5-10.1); COR NA(FOR HYPERGLY) 144 mmol/L (136-145); CREATININE 1.75 mg/dL (0.55-1.02); GLUCOSE 121 mg/dL (65-99); POTASSIUM 3.9 mmol/L (3.5-5.1); SODIUM 143 mmol/L (136-145); TOTAL PROTEIN 6.2 g/dL (6.4-8.2); eGFR NON BLACK RACES 30 (>60)
--- NOTE | 2023-09-05 08:51 | NOTE.SOAP ---
Sobety Note Note for Day of Date of Exam: 09/05/23 Subjective Data Subjective Data: no cp Objective Data Objective Data: bp 120-150 p 70s- just altered her meds to bid yesterday Assessment Assessment: elevated trop- chronic/poss cad based on recent stress/good LV- doesnt walk- Plan Plan: push antianginal medications- on all 3 now- ok [place] [facility] [place]
[2023-09-05] MEDS: ANTIVERT TAB 25 MG PO NR (09:20)
[2023-09-05] MEDS: ROBITUSSIN DM PO PRN (09:20)
--- NOTE | 2023-09-05 09:41 | PCM.PROG ---
Progress Note Progress Note for Day of Date of Exam: 09/05/23 Subjective Subjective: Patient is a 82-year-old female with a past medical history of hypertension, hypothyroidism, CKD, CAD, COPD, admitted for pneumonia. This morning she is sitting up in bed comfortably. She still reports productive cough but has improved. No acute events overnight. Labs/imaging: WBC 9.4, hemoglobin 8.9, platelets 190, sodium 143, potassium 3.9, creatinine 1.75, glucose 121. Chest x-ray this morning is pending. Patient is on antibiotics Rocephin. AIT send out and blood cultures pending. Cardiology-Dr Hernandez consulted for elevated troponin, appears to be chronic, no further workup indicated and patient is on antianginal medications. Home medications have been resumed. Otherwise, continue with current treatment plan. Continue to closely monitor and follow-up labs/imaging. Past Medical Family Social History Allergies: Allergies lisinopril Allergy (Verified 11/06/21 20:32) Review of Systems ROS changes noted: see HPI Vital Signs and I&O's Vital Signs: Vital Signs Temperature 97.6 F Temperature 98.5 F Pulse Rate [Left Radial] 76 Pulse Rate [Left Radial] 69 Respiratory Rate 18 Respiratory Rate 21 Blood Pressure [Left Arm] 157/68 Blood Pressure [Left Arm] 127/60 O2 Sat by Pulse Oximetry 97 O2 Sat by Pulse Oximetry 97 Intake and Output: Intake & Output 09/02/23 09/03/23 09/04/23 09/05/23 23:59 23:59 23:59 23:59 Intake Total 640 / 640 1939 200 / 200 Balance 640 / 640 1939 / 1939 200 / 200 Physical Exam Oriented: Normal Eyes: Normal Ear: Normal Nose: Normal Throat: Normal Respiratory: Normal Cardiovascular: Normal : Normal Auscultation: Bowel Sounds: Normal Tenderness: Normal Skin: Normal Psychiatric: Normal Mood Description: Calm and Appropriate Affect: Normal Speech Pattern: Clear and Appropriate Laboratory and Diagnostics 09/05/23 06:00 09/05/23 06:00 Labs: 09/04/23 09:43 Sputum - Expectorated Sputum Sputum Culture - Preliminary 09/04/23 09:43 Sputum - Expectorated Sputum - Final Laboratory WBC 9.4 X10^3/uL (3.6-10.0) 09/05/23 06:00 RBC 3.17 X10^6/uL (3.5-5.4) L 09/05/23 06:00 Hgb 8.9 g/dL (12.0-16.0) L 09/05/23 06:00 Hct 26.2 % (36.0-47.0) L 09/05/23 06:00 MCV 82.8 fL (80.0-100.0) 09/05/23 06:00 MCH 28.2 pg (27.0-34.0) 09/05/23 06:00 MCHC 34.1 g/dL (33.0-35.0) 09/05/23 06:00 RDW 16.6 % (11.6-16.5) H 09/05/23 06:00 Plt Count 190 X10^3/uL (150.0-450.0) 09/05/23 06:00 MPV 7.9 fL (7.4-11.0) 09/05/23 06:00 Neut % (Auto) 71.9 % (42.0-75.0) 09/05/23 06:00 Lymph % (Auto) 15.3 % (21.0-51.0) L 09/05/23 06:00 [place] % (Auto) 10.7 % (0.0-13.0) 09/05/23 06:00 Eos % (Auto) 1.0 % (0.9-2.9) 09/05/23 06:00 Baso % (Auto) 1.1 % (0.2-1.0) H 09/05/23 06:00 Neut # (Auto) 6.7 x10^3/uL (2.2-4.8) H 09/05/23 06:00 Lymph # (Auto) 1.4 X10^3/uL (1.3-2.9) 09/05/23 06:00 [place] # (Auto) 1.0 x10^3/uL (0.3-0.8) H 09/05/23 06:00 Eos # (Auto) 0.1 x10^3/uL (0.0-0.2) 09/05/23 06:00 Baso # (Auto) 0.1 X10^3/uL (0.0-0.1) 09/05/23 06:00 Absolute Nucleated RBC 0.1 /100WBC 09/05/23 06:00 D-Dimer 1.76 ug/ml (0.0-0.57) H 09/03/23 14:55 Sample Site Rr 09/03/23 13:20 ABG pH 7.450 (7.35-7.45) 09/03/23 13:20 ABG pCO2 30.0 mmHg (35.0-45.0) L 09/03/23 13:20 ABG pO2 119.0 mmHg (80.0-100.0) H 09/03/23 13:20 ABG HCO3 20.9 mmol/L (22-26) L 09/03/23 13:20 ABG O2 Saturation 99.0 % (90-100) 09/03/23 13:20 ABG Base Excess -2.2 mmol/L (-2.0-2.0) L 09/03/23 13:20 Manan Test Pos 09/03/23 13:20 A-a Gradient 43.0 mmHg 09/03/23 13:20 FiO2 28.0 09/03/23 13:20 Blood Gas Comments Pt joe well cdn 09/03/23 13:20 Sodium 143 mmol/L (136-145) 09/05/23 06:00 Corrected Sodium 144 mmol/L (136-145) 09/05/23 06:00 Potassium 3.9 mmol/L (3.5-5.1) 09/05/23 06:00 Chloride 110 mmol/L (98-107) H 09/05/23 06:00 Carbon Dioxide 19.5 mmol/L (21-32) L 09/05/23 06:00 BUN 17 mg/dL (7-18) 09/05/23 06:00 Creatinine 1.75 mg/dL (0.55-1.02) H 09/05/23 06:00 Est GFR (MDRD) Af Amer 36 (>60) L 09/05/23 06:00 Est GFR (MDRD) Non-Af 30 (>60) L 09/05/23 06:00 Glucose 121 mg/dL (65-99) H 09/05/23 06:00 Calcium 7.2 mg/dL (8.5-10.1) L 09/05/23 06:00 Corrected Calcium 8.6 mg/dL (8.5-10.1) 09/05/23 06:00 Magnesium 2.5 mg/dL (2.0-2.9) 09/05/23 06:00 Total Bilirubin 0.30 mg/dL (0.2-1.0) 09/05/23 06:00 AST 28 Units/L (15-37) 09/05/23 06:00 ALT < 6 Units/L (12-78) L 09/05/23 06:00 Alkaline Phosphatase 59 Units/L (46-116) 09/05/23 06:00 Troponin I High Sens 112.4 ng/L (4.0-60.0) H* 09/04/23 12:49 B-Natriuretic Peptide 928 pg/mL (0-79) H 09/03/23 13:00 Total Protein 6.2 g/dL (6.4-8.2) L 09/05/23 06:00 Albumin 2.3 g/dL (3.4-5.0) L 09/05/23 06:00 Globulin 3.9 g/dL (2.5-4.5) 09/05/23 06:00 Albumin/Globulin Ratio 0.6 Ratio (1.1-2.1) L 09/05/23 06:00 SARS-CoV-2 (PCR) Negative (NEGATIVE) 09/03/23 12:39 Influenza Type A (PCR) Negative (NEGATIVE) 09/03/23 12:39 Influenza Type B (PCR) Negative (NEGATIVE) 09/03/23 12:39 RSV (PCR) Negative (NEGATIVE) 09/03/23 12:39 Plan (1) Pneumonia: Status: Acute Plan: Continue antibiotics (2) COPD (chronic obstructive pulmonary disease): Status: Chronic Qualifiers: COPD type: unspecified COPD Qualified Code(s): J44.9 - Chronic obstructive pulmonary disease, unspecified (3) HTN (hypertension): Status: Chronic Qualifiers: Hypertension type: primary hypertension Qualified Code(s): I10 - Essential (primary) hypertension (4) Hyperlipidemia: Status: Chronic Qualifiers: Hyperlipidemia type: mixed hyperlipidemia Qualified Code(s): E78.2 - Mixed hyperlipidemia (5) Chronic renal disease: Status: Chronic Qualifiers: Chronic kidney disease stage: stage 3 (moderate) Chronic kidney disease stage 3 subtype: unspecified whether 3a or 3b Qualified Code(s): N18.30 - Chronic kidney disease, stage 3 unspecified (6) Elevated troponin: Status: Acute Plan: Consult cardiology (7) Chest congestion: Status: Acute
--- NOTE | 2023-09-05 10:52 | RAD ---
EXAM:CHEST, 1 VIEWHISTORY:F/U, CHEST CONGESTION ;COMPARISON:Prior study or studies were utilized for comparison during interpretation with the most relevant dated 09/03/2023TECHNIQUE:CHEST, 1 VIEWFINDINGS:Chest:Lines and tubes: NoneMediastinum: Cardiac and mediastinal shadow is within normal limits for size and contour.Pulmonary vessels: No pulmonary vascular congestion.Lung lazo: No suspicious airspace opacity.Pleura: No effusion. No pneumothorax.Bones and soft tissues: No acute osseous or soft tissue abnormality.IMPRESSION:1. No acute cardiopulmonary abnormalityTHIS IS AN ELECTRONICALLY VERIFIED FINAL REPORT09/05/2023 10:49 AM - Electronically signed by Julien Stoner MD
[2023-09-05] MEDS: TUSSIONEX PENNKINETIC SUSP PO PRN (13:35)
[2023-09-05] MEDS: LEVAQUIN TAB 750 MG PO SCH (15:46)
[2023-09-06 05:25] VITALS: RESP 18
[2023-09-06 05:28] LABS: BASOPHILS # (AUTO) 0.1 X10^3/uL (0.0-0.1); BASOPHILS % (AUTO) 0.8 % (0.2-1.0); EOSINOPHILS # (AUTO) 0.1 x10^3/uL (0.0-0.2); EOSINOPHILS % (AUTO) 0.9 % (0.9-2.9); HEMATOCRIT 25.6 % (36.0-47.0); HEMOGLOBIN 8.6 g/dL (12.0-16.0); LYMPHOCYTES # (AUTO) 0.7 X10^3/uL (1.3-2.9); LYMPHOCYTES % (AUTO) 9.3 % (21.0-51.0); MEAN CORPUSCULAR HEMOGLOBIN 27.3 pg (27.0-34.0); MEAN CORPUSCULAR HGB CONC 33.5 g/dL (33.0-35.0); MEAN CORPUSCULAR VOLUME 81.5 fL (80.0-100.0); MEAN PLATELET VOLUME 8.3 fL (7.4-11.0); MONOCYTES # (AUTO) 0.9 x10^3/uL (0.3-0.8); MONOCYTES % (AUTO) 11.7 % (0.0-13.0); NEUTROPHILS # (AUTO) 6.2 x10^3/uL (2.2-4.8); NEUTROPHILS % (AUTO) 77.3 % (42.0-75.0); PLATELET COUNT 191 X10^3/uL (150.0-450.0); RED BLOOD COUNT 3.14 X10^6/uL (3.5-5.4); RED CELL DISTRIBUTION WIDTH 16.6 % (11.6-16.5)
[2023-09-06 05:51] LABS: ALANINE AMINOTRANSFERASE 6 Units/L (12-78); ALBUMIN 2.3 g/dL (3.4-5.0); ALKALINE PHOSPHATASE 58 Units/L (46-116); ASPARTATE AMINO TRANSFERASE 18 Units/L (15-37); BLOOD UREA NITROGEN 16 mg/dL (7-18); CALCIUM 7.6 mg/dL (8.5-10.1); CARBON DIOXIDE 22.6 mmol/L (21-32); CHLORIDE 108 mmol/L (98-107); CREATININE 1.68 mg/dL (0.55-1.02); GLUCOSE 97 mg/dL (65-99); POTASSIUM 3.8 mmol/L (3.5-5.1); SODIUM 142 mmol/L (136-145); TOTAL PROTEIN 6.2 g/dL (6.4-8.2); eGFR NON BLACK RACES 31 (>60)
[2023-09-06 08:43] VITALS: O2SAT 98
[2023-09-06 12:45] VITALS: BP 147/65; PULSE 68; TEMP 97.7
== END 2023-09-06 14:00 ==
LOC: MED/SURG 12:23 → ER 12:23 → MED/SURG 18:11
PROVIDERS: ADMIT Family Medicine; ATTEND Internal Medicine
DX: G20.C Parkinsonism, unspecified; R77.8 Other specified abnormalities of plasma proteins; I12.9 Hypertensive chronic kidney disease with stage 1 through stage 4 chronic kidney disease, or unspecified chronic kidney disease; R06.02 Shortness of breath; N18.30 Chronic kidney disease, stage 3 unspecified; R79.1 Abnormal coagulation profile; R26.89 Other abnormalities of gait and mobility; J18.8 Other pneumonia, unspecified organism; R94.31 Abnormal electrocardiogram [ECG] [EKG]; E78.2 Mixed hyperlipidemia; J44.9 Chronic obstructive pulmonary disease, unspecified; I25.10 Atherosclerotic heart disease of native coronary artery without angina pectoris; Z20.822 Contact with and (suspected) exposure to COVID-19; B95.3 Streptococcus pneumoniae as the cause of diseases classified elsewhere; E03.9 Hypothyroidism, unspecified; B96.89 Other specified bacterial agents as the cause of diseases classified elsewhere

== ENCOUNTER 2024-03-27 17:46 | Observation (INO) ==
[2024-03-27] MEDS ORDERED: NS 250 ML IV 25 ML IV PRN (17:57)
[2024-03-27 20:00] LABS: BASOPHILS # (AUTO) 0.3 X10^3/uL (0.0-0.1); BASOPHILS % (AUTO) 2.4 % (0.2-1.0); EOSINOPHILS # (AUTO) 0.1 x10^3/uL (0.0-0.2); EOSINOPHILS % (AUTO) 0.5 % (0.9-2.9); HEMATOCRIT 34.8 % (36.0-47.0); HEMOGLOBIN 11.8 g/dL (12.0-16.0); LYMPHOCYTES # (AUTO) 1.4 X10^3/uL (1.3-2.9); MEAN CORPUSCULAR HEMOGLOBIN 27.5 pg (27.0-34.0); MEAN CORPUSCULAR HGB CONC 33.8 g/dL (33.0-35.0); MEAN CORPUSCULAR VOLUME 81.4 fL (80.0-100.0); MEAN PLATELET VOLUME 8.3 fL (7.4-11.0); MONOCYTES # (AUTO) 0.6 x10^3/uL (0.3-0.8); MONOCYTES % (AUTO) 4.8 % (0.0-13.0); NEUTROPHILS % (AUTO) 81.3 % (42.0-75.0); PLATELET COUNT 185 X10^3/uL (150.0-450.0); RED BLOOD COUNT 4.27 X10^6/uL (3.5-5.4); RED CELL DISTRIBUTION WIDTH 17.7 % (11.6-16.5); WHITE BLOOD COUNT 12.3 X10^3/uL (3.6-10.0)
[2024-03-27 20:07] LABS: ALBUMIN 2.9 g/dL (3.4-5.0); CALCIUM 6.5 mg/dL (8.5-10.1); CARBON DIOXIDE 23.7 mmol/L (21-32); COR CA(FOR HYPOALB) 7.4 mg/dL (8.5-10.1); CREATININE 1.74 mg/dL (0.55-1.02); TOTAL PROTEIN 7.1 g/dL (6.4-8.2)
[2024-03-27] MEDS: CATAPRES TAB 0.1 MG PO ONE (22:54)
--- NOTE | 2024-03-27 23:00 | EKG ---
Test Reason : Hypertension protocol Blood Pressure : */* mmHG Vent. Rate : 100 BPM Atrial Rate : 100 BPM P-R Int : 112 ms QRS Dur : 106 ms QT Int : 450 ms P-R-T Axes : 87 61 37 degrees QTc Int : 580 ms Normal sinus rhythm prominent early precordial r waves /irbbb Nonspecific T wave abnormality Prolonged QT Abnormal ECG When compared with ECG of 30-JAN-2024 04:13, T wave inversion no longer evident in Lateral leads Confirmed by Liam Hernandez MD ([id number]) on 03/29/2024 7:52:56 AM Referred By: Confirmed By: Liam Hernandez MD
[2024-03-27] MEDS: NS 1,000 ML IV 1,000 ML IV SCH (23:26)
[2024-03-27] MEDS: ZOSYN VIAL 3.375 GRAMS 3.375 G in NS 100 ML IV 100 ML IV SCH (23:26)
[2024-03-27 23:37] VITALS: BMI 24.3
[2024-03-27] MEDS ORDERED: PHARMACY CONSULT LTC MEDICATIONS XX SCH (23:45)
[2024-03-28 06:28] LABS: BASOPHILS # (AUTO) 0.1 X10^3/uL (0.0-0.1); EOSINOPHILS # (AUTO) 0.1 x10^3/uL (0.0-0.2); EOSINOPHILS % (AUTO) 1.1 % (0.9-2.9); HEMATOCRIT 24.9 % (36.0-47.0); LYMPHOCYTES # (AUTO) 1.4 X10^3/uL (1.3-2.9); LYMPHOCYTES % (AUTO) 16.9 % (21.0-51.0); MEAN CORPUSCULAR HEMOGLOBIN 29.2 pg (27.0-34.0); MEAN CORPUSCULAR HGB CONC 34.9 g/dL (33.0-35.0); MEAN CORPUSCULAR VOLUME 83.5 fL (80.0-100.0); MEAN PLATELET VOLUME 8.2 fL (7.4-11.0); MONOCYTES # (AUTO) 0.8 x10^3/uL (0.3-0.8); MONOCYTES % (AUTO) 9.8 % (0.0-13.0); NEUTROPHILS # (AUTO) 5.8 x10^3/uL (2.2-4.8); NEUTROPHILS % (AUTO) 71.2 % (42.0-75.0); PLATELET COUNT 148 X10^3/uL (150.0-450.0); RED BLOOD COUNT 2.98 X10^6/uL (3.5-5.4); RED CELL DISTRIBUTION WIDTH 17.5 % (11.6-16.5); WHITE BLOOD COUNT 8.1 X10^3/uL (3.6-10.0)
[2024-03-28 06:45] LABS: ALANINE AMINOTRANSFERASE 14 Units/L (12-78); ALBUMIN 2.1 g/dL (3.4-5.0); ALKALINE PHOSPHATASE 55 Units/L (46-116); ASPARTATE AMINO TRANSFERASE 23 Units/L (15-37); BLOOD UREA NITROGEN 8 mg/dL (7-18); CALCIUM 6.1 mg/dL (8.5-10.1); CARBON DIOXIDE 24.6 mmol/L (21-32); CHLORIDE 113 mmol/L (98-107); COR CA(FOR HYPOALB) 7.6 mg/dL (8.5-10.1); CREATININE 1.59 mg/dL (0.55-1.02); GLUCOSE 87 mg/dL (65-99); MAGNESIUM 0.9 mg/dL (2.0-2.9); SODIUM 148 mmol/L (136-145); TOTAL PROTEIN 5.4 g/dL (6.4-8.2); eGFR NON BLACK RACES 33 (>60)
[2024-03-28 06:58] LABS: POTASSIUM 2.8 mmol/L (3.5-5.1)
[2024-03-28] MEDS ORDERED: CONSULT PHARMACY - POTASSIUM & MAGNESIUM XX SCH (07:00)
[2024-03-28 07:01] LABS: HEMOGLOBIN 8.7 g/dL (12.0-16.0)
[2024-03-28] MEDS ORDERED: MAGNESIUM SULFATE 1 GRAM/100 mL PREMIX 1 G/100 ML BAG IV SCH (09:00)
[2024-03-28] MEDS ORDERED: K-DUR TAB 20 MEQ PO SCH (09:00)
[2024-03-28] MEDS: MAGNESIUM SULFATE IV SCH (09:31)
[2024-03-28] MEDS: NS IV SCH (09:31)
[2024-03-28] MEDS: KCL IV SCH (09:31)
[2024-03-28] MEDS ORDERED: ULTRAM PO PRN (09:38)
[2024-03-28] MEDS ORDERED: LEVETIRACETAM 250 MG PO SCH (09:45)
[2024-03-28] MEDS ORDERED: CARBOXYMETHYLCELLULOSE SODIUM 0.5% OP SCH (09:45)
[2024-03-28] MEDS ORDERED: KLOR-CON 10 MEQ TAB PO SCH (09:45)
[2024-03-28] MEDS ORDERED: CALCIUM 600 MG PO SCH (09:45)
[2024-03-28] MEDS ORDERED: PHARMACY CONSULT - VANCOMYCIN XX SCH (10:00)
[2024-03-28] MEDS: PLAVIX PO SCH (11:42)
[2024-03-28] MEDS: SINEMET (PLAIN) 25/100 MG PO SCH (11:42)
[2024-03-28] MEDS: VANCOMYCIN IV *PREMIX 1.25 G/250 ML BAG 1.25 G/250 ML PIGGYBACK IV SCH (11:43)
[2024-03-28] MEDS: VITAMIN D3 125 mcg (5,000 UNITS) PO SCH (11:43)
[2024-03-28] MEDS: K-DUR TAB 20 MEQ PO SCH (11:43)
[2024-03-28] MEDS: PREDNISONE TAB 5 MG PO SCH (11:43)
[2024-03-28] MEDS: KEPPRA TAB 500 MG PO SCH (11:43)
[2024-03-28] MEDS: NORVASC TAB 10 MG PO SCH (11:43)
[2024-03-28] MEDS: LOPRESSOR TAB 25 MG PO SCH (11:43)
--- NOTE | 2024-03-28 12:14 | DR.H&P ---
H&P History & Physical for Day of: H&P Date: 03/28/24 Chief Complaint Chief Complaint: weakness, AMS, fall History of Present Illness History of Present Illness: Ms Munoz is a 83y/o female with a PMH of CAD, HTN, CKD, COPD, seizure disorder, parkinson's and anxiety who is a resident of [facility] presented with AMS, weakness and fall. She was being treated outpatient for UTI and LE cellulitis. She has had multiple ER visits for similar complaints. She was not taking her PO antibiotics daily. Family was concerned regarding patie nt's mentation and weakness so she was directly admitted for further management. She is doing better this morning. She was started on hydration and IV antibiotics. She did have CT-brain done on 03/25/24 which did not show any acute changes. Family member also present in the room, reports patient's mentation is better this morning. Labs/imaging reviewed: -WBC 8.1 8.4 Hgb 8.7 Plt 148 K 2.8 Na 148 Mag 0.9 -Urine Cx 03/25/24: MRSA Plan: admit to med-surg, switch Zosyn to Vancomycin due to recent urine Cx showing MRSA. Continue K and Mag replacement. Continue hydration. Resume home medications. Monitor neuro status. Encourage PO intake. PT/OT as tolerated. Monitor AM labs/imaging. Past Medical History Past Medical History: Anxiety, COPD, Coronary Artery Disease, Hypertension, Hypothyroidism and Renal Disease Additional Medical History: GIANT CELL ARTERITIS Past Surgical History Surgical History: Cholecystectomy and Ortho Surgery Family History Family Medical History: Diabetes Mellitus, Heart Failure and Hypertension Social History Alcohol Use: None Drug Use: None Medications Home Medications: Home Medications Medication Instructions Recorded Confirmed Type amlodipine 10 mg tablet 10 mg PO QDAY 01/30/24 03/27/24 History atorvastatin 20 mg tablet 20 mg PO HS 01/30/24 03/27/24 History carbidopa 25 mg-levodopa 100 mg 1 tab PO BID 01/30/24 03/27/24 History tablet clonidine 0.3 mg/24 hr weekly 1 patch topical QWEEK 01/30/24 03/27/24 History transdermal patch clopidogrel 75 mg tablet 75 mg PO QDAY 01/30/24 03/27/24 History colchicine 0.6 mg tablet 0.6 mg PO DAILY PRN Gout 01/30/24 03/27/24 History hydralazine 100 mg tablet 100 mg PO TID 01/30/24 03/27/24 History levetiracetam 250 mg tablet 250 mg PO BID 01/30/24 03/27/24 History levothyroxine 75 mcg tablet 75 mcg PO QDAY 01/30/24 03/27/24 History linaclotide 145 mcg capsule 145 mcg PO QDAY 01/30/24 03/27/24 History (Linzess) metoprolol tartrate 25 mg tablet 25 mg PO QDAY 01/30/24 03/27/24 History pantoprazole 40 mg tablet,delayed 40 mg PO BID 01/30/24 03/27/24 History release polyethylene glycol 3350 17 17 g PO QDAY 01/30/24 03/27/24 History gram/dose oral powder calcium 600 mg capsule 600 mg PO TID 03/25/24 03/27/24 History carboxymethylcellulose sodium 0.5 1 drp ophthalmic (eye) BID 03/25/24 03/27/24 History % eye drops (Refresh Tears) diclofenac sodium 1 % topical gel 1 ea topical BID 03/25/24 03/27/24 History docusate sodium 100 mg capsule 100 mg PO DAILY 03/25/24 03/27/24 History loratadine 10 mg tablet (Claritin) 10 mg PO HS 03/25/24 03/27/24 History multivitamin 1 tab PO DAILY 03/25/24 03/27/24 History ondansetron HCl 4 mg tablet 4 mg PO Q6H PRN Nausea And Vomiting 03/25/24 03/27/24 History potassium chloride 10 mEq 10 meq PO BID 03/25/24 03/27/24 History tablet,extended release prednisone 5 mg tablet 5 mg PO DAILY 03/25/24 03/27/24 History tramadol 50 mg tablet 50 mg PO Q6H PRN Pain 03/25/24 03/27/24 History zinc 1 tab PO DAILY 03/25/24 03/28/24 History clindamycin HCl 300 mg capsule 300 mg PO QID 03/27/24 03/27/24 History mineral oil-hydrophil petrolat 1 applic topical DAILY 03/27/24 03/27/24 History topical ointment miscellaneous medical supply 03/27/24 03/27/24 History Skin Barrier Cream To Sacrum 1 applic TOP PRN PRN 03/28/24 03/28/24 History Plessis Tonic 30 ml PO HS 03/28/24 03/28/24 History ascorbic acid (vitamin C) 500 mg 500 mg PO QDAY 03/28/24 03/28/24 History tablet cholecalciferol (vitamin D3) 125 125 mcg PO QDAY 03/28/24 03/28/24 History mcg (5,000 unit) tablet (Vitamin D3) Allergies Allergies Allergy/AdvReac Type Severity Reaction Status Date / Time lisinopril Allergy Verified 03/27/24 21:33 Labs 03/28/24 05:39 03/28/24 05:39 Labs: Laboratory WBC 8.1 X10^3/uL (3.6-10.0) 03/28/24 05:39 RBC 2.98 X10^6/uL (3.5-5.4) L 03/28/24 05:39 Hgb 8.7 g/dL (12.0-16.0) L D 03/28/24 05:39 Hct 24.9 % (36.0-47.0) L 03/28/24 05:39 MCV 83.5 fL (80.0-100.0) 03/28/24 05:39 MCH 29.2 pg (27.0-34.0) 03/28/24 05:39 MCHC 34.9 g/dL (33.0-35.0) 03/28/24 05:39 RDW 17.5 % (11.6-16.5) H 03/28/24 05:39 Plt Count 148 X10^3/uL (150.0-450.0) L 03/28/24 05:39 MPV 8.2 fL (7.4-11.0) 03/28/24 05:39 Neut % (Auto) 71.2 % (42.0-75.0) 03/28/24 05:39 Lymph % (Auto) 16.9 % (21.0-51.0) L 03/28/24 05:39 [place] % (Auto) 9.8 % (0.0-13.0) 03/28/24 05:39 Eos % (Auto) 1.1 % (0.9-2.9) 03/28/24 05:39 Baso % (Auto) 1.0 % (0.2-1.0) 03/28/24 05:39 Neut # (Auto) 5.8 x10^3/uL (2.2-4.8) H 03/28/24 05:39 Lymph # (Auto) 1.4 X10^3/uL (1.3-2.9) 03/28/24 05:39 [place] # (Auto) 0.8 x10^3/uL (0.3-0.8) 03/28/24 05:39 Eos # (Auto) 0.1 x10^3/uL (0.0-0.2) 03/28/24 05:39 Baso # (Auto) 0.1 X10^3/uL (0.0-0.1) 03/28/24 05:39 Absolute Nucleated RBC 0.1 /100WBC 03/28/24 05:39 Sodium 148 mmol/L (136-145) H 03/28/24 05:39 Corrected Sodium TNP 03/28/24 05:39 Potassium 2.8 mmol/L (3.5-5.1) L* 03/28/24 05:39 Chloride 113 mmol/L (98-107) H 03/28/24 05:39 Carbon Dioxide 24.6 mmol/L (21-32) 03/28/24 05:39 BUN 8 mg/dL (7-18) 03/28/24 05:39 Creatinine 1.59 mg/dL (0.55-1.02) H 03/28/24 05:39 Est GFR (MDRD) Af Amer 40 (>60) L 03/28/24 05:39 Est GFR (MDRD) Non-Af 33 (>60) L 03/28/24 05:39 Glucose 87 mg/dL (65-99) 03/28/24 05:39 Calcium 6.1 mg/dL (8.5-10.1) L 03/28/24 05:39 Corrected Calcium 7.6 mg/dL (8.5-10.1) L 03/28/24 05:39 Magnesium 0.9 mg/dL (2.0-2.9) L 03/28/24 05:39 Total Bilirubin 0.50 mg/dL (0.2-1.0) 03/28/24 05:39 AST 23 Units/L (15-37) 03/28/24 05:39 ALT 14 Units/L (12-78) 03/28/24 05:39 Alkaline Phosphatase 55 Units/L (46-116) 03/28/24 05:39 Total Protein 5.4 g/dL (6.4-8.2) L 03/28/24 05:39 Albumin 2.1 g/dL (3.4-5.0) L 03/28/24 05:39 Globulin 3.3 g/dL (2.5-4.5) 03/28/24 05:39 Albumin/Globulin Ratio 0.6 Ratio (1.1-2.1) L 03/28/24 05:39 Review of Systems Constitutional: Weakness and Malaise Eyes: No Symptoms Reported ENT: No Symptoms Reported Respiratory: No Symptoms Reported Cardiovascular: No Symptoms Reported Gastrointestinal: No Symptoms Reported Genitourinary: No Symptoms Reported Musculoskeletal: Leg Pain Skin: Bruising and Ecchymosis Neurological: Confusion Physical Exam Vital Signs: Vital Signs Temperature 98.3 F Pulse Rate [Left Radial] 82 Respiratory Rate 22 Blood Pressure [Left Arm] 177/77 O2 Sat by Pulse Oximetry 98 Oriented: Normal Throat: Normal Respiratory: Diminished Throughout Cardiovascular: Normal and Edema Auscultation: Bowel Sounds: Normal Palpation: Normal Tenderness: Normal Skin: Tender, Bruising and Ecchymosis (b/l LE bruising noted. RLE slight erythema and warmth noted ) Musculoskeletal: Leg Psychiatric: Normal Mood Description: Calm Affect: Normal Speech Pattern: Clear and Appropriate Assessment/Plan (1) Hypomagnesemia: Status: Acute (2) Cellulitis of both lower extremities: Status: Acute (3) Urinary tract infection: Qualifiers: Urinary tract infection type: acute cystitis Hematuria presence: without hematuria Qualified Code(s): N30.00 - Acute cystitis without hematuria Status: Acute (4) Altered mental status: Qualifiers: Altered mental status type: unspecified Qualified Code(s): R41.82 - Altered mental status, unspecified Status: Acute (5) Hypokalemia: Status: Acute (6) Hypocalcemia: Status: Acute (7) COPD (chronic obstructive pulmonary disease): Qualifiers: COPD type: unspecified COPD Qualified Code(s): J44.9 - Chronic obstructive pulmonary disease, unspecified Status: Chronic (8) Chronic renal disease: Qualifiers: Chronic kidney disease stage: stage 3 (moderate) Chronic kidney disease stage 3 subtype: unspecified whether 3a or 3b Qualified Code(s): N18.30 - Chronic kidney disease, stage 3 unspecified Status: Chronic (9) CAD (coronary artery disease): Qualifiers: Coronary Disease-Associated Artery/Lesion type: [place] artery [place] vs. transplanted heart: [place] heart Associated angina: unspecified whether angina present Qualified Code(s): I25.10 - Atherosclerotic heart disease of [place] coronary artery without angina pectoris Status: Chronic Review H&P Reviewed: Yes Patient was examined?: Yes
[2024-03-28] MEDS: CARBOXYMETHYLCELLULOSE SODIUM 0.5% OP SCH (14:52)
[2024-03-28] MEDS: CALCIUM 600 MG PO SCH (14:52)
[2024-03-28] MEDS ORDERED: NYSTATIN POWDER TOP PRN (18:56)
[2024-03-28] MEDS: LIPITOR TAB 20 MG PO SCH (21:19)
[2024-03-28] MEDS: PROTONIX TAB 40 MG PO SCH (21:19)
[2024-03-29 06:50] LABS: BASOPHILS # (AUTO) 0.1 X10^3/uL (0.0-0.1); BASOPHILS % (AUTO) 0.9 % (0.2-1.0); EOSINOPHILS # (AUTO) 0.1 x10^3/uL (0.0-0.2); EOSINOPHILS % (AUTO) 1.4 % (0.9-2.9); HEMATOCRIT 26.8 % (36.0-47.0); HEMOGLOBIN 9.4 g/dL (12.0-16.0); LYMPHOCYTES # (AUTO) 1.3 X10^3/uL (1.3-2.9); LYMPHOCYTES % (AUTO) 16.1 % (21.0-51.0); MEAN CORPUSCULAR HEMOGLOBIN 29.3 pg (27.0-34.0); MEAN CORPUSCULAR VOLUME 83.6 fL (80.0-100.0); MEAN PLATELET VOLUME 8.3 fL (7.4-11.0); MONOCYTES # (AUTO) 0.6 x10^3/uL (0.3-0.8); MONOCYTES % (AUTO) 8.2 % (0.0-13.0); NEUTROPHILS # (AUTO) 5.8 x10^3/uL (2.2-4.8); NEUTROPHILS % (AUTO) 73.4 % (42.0-75.0); PLATELET COUNT 173 X10^3/uL (150.0-450.0); RED BLOOD COUNT 3.21 X10^6/uL (3.5-5.4); RED CELL DISTRIBUTION WIDTH 17.7 % (11.6-16.5); WHITE BLOOD COUNT 7.9 X10^3/uL (3.6-10.0)
[2024-03-29 07:06] LABS: ALBUMIN 2.4 g/dL (3.4-5.0); ALKALINE PHOSPHATASE 65 Units/L (46-116); ASPARTATE AMINO TRANSFERASE 21 Units/L (15-37); BLOOD UREA NITROGEN 7 mg/dL (7-18); CALCIUM 6.7 mg/dL (8.5-10.1); CARBON DIOXIDE 22.4 mmol/L (21-32); CHLORIDE 112 mmol/L (98-107); CREATININE 1.53 mg/dL (0.55-1.02); GLUCOSE 92 mg/dL (65-99); POTASSIUM 3.8 mmol/L (3.5-5.1); SODIUM 148 mmol/L (136-145); TOTAL PROTEIN 6.4 g/dL (6.4-8.2); eGFR NON BLACK RACES 34 (>60)
[2024-03-29 07:19] LABS: ALANINE AMINOTRANSFERASE 8 Units/L (12-78)
[2024-03-29] MEDS: COLACE CAP 100 MG PO SCH (09:06)
[2024-03-29] MEDS: SYNTHROID 75 mcg TAB PO SCH (09:06)
[2024-03-29] MEDS: ARTIFICIAL TEARS DROPS OP SCH (09:08)
[2024-03-29] MEDS: CITRACAL + VITAMIN D PO SCH (09:09)
[2024-03-29] MEDS ORDERED: NS 1/2 1,000 ML IV 1,000 ML IV ONE ×2 (09:12→21:43)
[2024-03-29] MEDS: NS 1/2 1,000 ML IV 1,000 ML IV SCH (09:19)
--- NOTE | 2024-03-29 10:30 | PCM.PROG ---
Progress Note Progress Note for Day of Date of Exam: 03/29/24 Subjective Subjective: Patient seen at bedside, no acute events overnight. She is feeling better. She was admitted from the intermediate due to UTI, AMS and weakness. Urine Cx grew out MRSA. She is on IV vancomycin. Her K and Mag levels are better today. Labs/imaging reveiwed: -WBC 7.9 Hgb 9.4 Na 148 K 3.8 Mag 2.0 Ca 8.0 -Urine Cx: MRSA Plan: continue IV Vancomycin. Change fluids to 1/2NS. Monitor Na levels. Continue home medications. PT/OT as tolerated. Monitor AM labs/imaging. Past Medical Family Social History Allergies: Allergies lisinopril Allergy (Verified 03/27/24 21:33) Vital Signs and I&O's Vital Signs: Vital Signs Temperature 97.7 F Temperature 97.8 F Pulse Rate [Left Radial] 79 Pulse Rate [Left Radial] 75 Respiratory Rate 18 Respiratory Rate 18 Blood Pressure [Left Arm] 159/71 Blood Pressure [Left Arm] 161/70 O2 Sat by Pulse Oximetry 100 O2 Sat by Pulse Oximetry 97 Intake and Output: Intake & Output 03/27/24 03/28/24 03/28/24 03/29/24 00:59 00:59 23:59 23:59 Intake Total 664 / 664 Balance 664 / 664 Physical Exam Oriented: Normal Throat: Normal Respiratory: Generalized and Diminished Cardiovascular: Normal and Edema Auscultation: Bowel Sounds: Normal Palpation: Normal Tenderness: Normal Skin: Tender, Bruising and Ecchymosis (b/l LE bruising noted. RLE slight erythema and warmth noted ) Musculoskeletal: Leg Psychiatric: Normal Mood Description: Calm Affect: Normal Speech Pattern: Clear and Appropriate Laboratory and Diagnostics 03/29/24 06:05 03/29/24 06:05 Labs: Laboratory WBC 7.9 X10^3/uL (3.6-10.0) 03/29/24 06:05 RBC 3.21 X10^6/uL (3.5-5.4) L 03/29/24 06:05 Hgb 9.4 g/dL (12.0-16.0) L 03/29/24 06:05 Hct 26.8 % (36.0-47.0) L 03/29/24 06:05 MCV 83.6 fL (80.0-100.0) 03/29/24 06:05 MCH 29.3 pg (27.0-34.0) 03/29/24 06:05 MCHC 35.0 g/dL (33.0-35.0) 03/29/24 06:05 RDW 17.7 % (11.6-16.5) H 03/29/24 06:05 Plt Count 173 X10^3/uL (150.0-450.0) 03/29/24 06:05 MPV 8.3 fL (7.4-11.0) 03/29/24 06:05 Neut % (Auto) 73.4 % (42.0-75.0) 03/29/24 06:05 Lymph % (Auto) 16.1 % (21.0-51.0) L 03/29/24 06:05 [place] % (Auto) 8.2 % (0.0-13.0) 03/29/24 06:05 Eos % (Auto) 1.4 % (0.9-2.9) 03/29/24 06:05 Baso % (Auto) 0.9 % (0.2-1.0) 03/29/24 06:05 Neut # (Auto) 5.8 x10^3/uL (2.2-4.8) H 03/29/24 06:05 Lymph # (Auto) 1.3 X10^3/uL (1.3-2.9) 03/29/24 06:05 [place] # (Auto) 0.6 x10^3/uL (0.3-0.8) 03/29/24 06:05 Eos # (Auto) 0.1 x10^3/uL (0.0-0.2) 03/29/24 06:05 Baso # (Auto) 0.1 X10^3/uL (0.0-0.1) 03/29/24 06:05 Absolute Nucleated RBC 0.0 /100WBC 03/29/24 06:05 Sodium 148 mmol/L (136-145) H 03/29/24 06:05 Corrected Sodium TNP 03/29/24 06:05 Potassium 3.8 mmol/L (3.5-5.1) 03/29/24 06:05 Chloride 112 mmol/L (98-107) H 03/29/24 06:05 Carbon Dioxide 22.4 mmol/L (21-32) 03/29/24 06:05 BUN 7 mg/dL (7-18) 03/29/24 06:05 Creatinine 1.53 mg/dL (0.55-1.02) H 03/29/24 06:05 Est GFR (MDRD) Af Amer 42 (>60) L 03/29/24 06:05 Est GFR (MDRD) Non-Af 34 (>60) L 03/29/24 06:05 Glucose 92 mg/dL (65-99) 03/29/24 06:05 Calcium 6.7 mg/dL (8.5-10.1) L 03/29/24 06:05 Corrected Calcium 8.0 mg/dL (8.5-10.1) L 03/29/24 06:05 Magnesium 2.0 mg/dL (2.0-2.9) 03/29/24 06:05 Total Bilirubin 0.50 mg/dL (0.2-1.0) 03/29/24 06:05 AST 21 Units/L (15-37) 03/29/24 06:05 ALT 8 Units/L (12-78) L 03/29/24 06:05 Alkaline Phosphatase 65 Units/L (46-116) 03/29/24 06:05 Total Protein 6.4 g/dL (6.4-8.2) 03/29/24 06:05 Albumin 2.4 g/dL (3.4-5.0) L 03/29/24 06:05 Globulin 4.0 g/dL (2.5-4.5) 03/29/24 06:05 Albumin/Globulin Ratio 0.6 Ratio (1.1-2.1) L 03/29/24 06:05 Plan (1) Hypernatremia: Status: Acute (2) Hypomagnesemia: Status: Acute (3) Cellulitis of both lower extremities: Status: Acute (4) Urinary tract infection: Status: Acute Qualifiers: Hematuria presence: without hematuria Urinary tract infection type: acute cystitis Qualified Code(s): N30.00 - Acute cystitis without hematuria (5) Altered mental status: Status: Acute Qualifiers: Altered mental status type: unspecified Qualified Code(s): R41.82 - Altered mental status, unspecified (6) Hypokalemia: Status: Acute (7) Hypocalcemia: Status: Acute (8) COPD (chronic obstructive pulmonary disease): Status: Chronic Qualifiers: COPD type: unspecified COPD Qualified Code(s): J44.9 - Chronic obstructive pulmonary disease, unspecified (9) Chronic renal disease: Status: Chronic Qualifiers: Chronic kidney disease stage: stage 3 (moderate) Chronic kidney disease stage 3 subtype: unspecified whether 3a or 3b Qualified Code(s): N18.30 - Chronic kidney disease, stage 3 unspecified (10) CAD (coronary artery disease): Status: Chronic Qualifiers: Associated angina: unspecified whether angina present Coronary Disease- Associated Artery/Lesion type: [place] artery [place] vs. transplanted heart: [place] heart Qualified Code(s): I25.10 - Atherosclerotic heart disease of [place] coronary artery without angina pectoris
[2024-03-29] MEDS: POTASSIUM CHLORIDE LIQ PO SCH (20:55)
[2024-03-29] MEDS ORDERED: KLOR-CON PO SCH (21:00)
[2024-03-30] MEDS ORDERED: MILK OF MAGNESIA PO PRN (05:50)
[2024-03-30 06:21] LABS: BASOPHILS # (AUTO) 0.1 X10^3/uL (0.0-0.1); BASOPHILS % (AUTO) 1.2 % (0.2-1.0); EOSINOPHILS # (AUTO) 0.2 x10^3/uL (0.0-0.2); HEMATOCRIT 26.9 % (36.0-47.0); HEMOGLOBIN 9.3 g/dL (12.0-16.0); LYMPHOCYTES # (AUTO) 1.6 X10^3/uL (1.3-2.9); LYMPHOCYTES % (AUTO) 18.5 % (21.0-51.0); MEAN CORPUSCULAR HEMOGLOBIN 29.6 pg (27.0-34.0); MEAN CORPUSCULAR HGB CONC 34.7 g/dL (33.0-35.0); MEAN CORPUSCULAR VOLUME 85.1 fL (80.0-100.0); MEAN PLATELET VOLUME 8.2 fL (7.4-11.0); MONOCYTES # (AUTO) 0.6 x10^3/uL (0.3-0.8); MONOCYTES % (AUTO) 7.5 % (0.0-13.0); NEUTROPHILS % (AUTO) 70.8 % (42.0-75.0); PLATELET COUNT 189 X10^3/uL (150.0-450.0); RED BLOOD COUNT 3.16 X10^6/uL (3.5-5.4); RED CELL DISTRIBUTION WIDTH 17.6 % (11.6-16.5); WHITE BLOOD COUNT 8.5 X10^3/uL (3.6-10.0)
[2024-03-30 06:35] LABS: BLOOD UREA NITROGEN 5 mg/dL (7-18); CALCIUM 7.4 mg/dL (8.5-10.1); CARBON DIOXIDE 21.6 mmol/L (21-32); CHLORIDE 111 mmol/L (98-107); CREATININE 1.47 mg/dL (0.55-1.02); GLUCOSE 86 mg/dL (65-99); POTASSIUM 3.7 mmol/L (3.5-5.1); SODIUM 145 mmol/L (136-145); eGFR NON BLACK RACES 36 (>60)
[2024-03-30 06:56] LABS: ALANINE AMINOTRANSFERASE 6 Units/L (12-78); ALBUMIN 2.6 g/dL (3.4-5.0); ALKALINE PHOSPHATASE 73 Units/L (46-116); ASPARTATE AMINO TRANSFERASE 22 Units/L (15-37); COR CA(FOR HYPOALB) 8.5 mg/dL (8.5-10.1); MAGNESIUM 1.8 mg/dL (2.0-2.9); TOTAL PROTEIN 6.7 g/dL (6.4-8.2)
[2024-03-30 09:32] VITALS: O2SAT 98
[2024-03-30 14:07] VITALS: BP 180/74; PULSE 72; RESP 18; TEMP 98.7
== END 2024-03-30 13:35 ==
LOC: MED/SURG
PROVIDERS: ADMIT Internal Medicine; ATTEND Internal Medicine
DX: R26.89 Other abnormalities of gait and mobility; L03.115 Cellulitis of right lower limb; R41.82 Altered mental status, unspecified; R94.31 Abnormal electrocardiogram [ECG] [EKG]; N18.30 Chronic kidney disease, stage 3 unspecified; R53.1 Weakness; E83.51 Hypocalcemia; W18.39XA Other fall on same level, initial encounter; G20.A1 Parkinson's disease without dyskinesia, without mention of fluctuations; E83.42 Hypomagnesemia; E87.6 Hypokalemia; E87.0 Hyperosmolality and hypernatremia; I25.10 Atherosclerotic heart disease of native coronary artery without angina pectoris; F41.8 Other specified anxiety disorders; N30.00 Acute cystitis without hematuria; J44.9 Chronic obstructive pulmonary disease, unspecified; L03.116 Cellulitis of left lower limb